=== PATIENT | male | born 1975 | race Two or more races ===

== ENCOUNTER 2025-08-07 21:59 | Emergency (ER) | payer MEDICAID, OTHER ==
[~2025-08-07] VITALS: Ht 177.8 cm; Wt 133.2 kg
[2025-08-07 22:05] VITALS: BP 131/81; PULSE 116; RESP 18; TEMP 98.8; O2SAT 96
[2025-08-07] MEDS ORDERED: ACE3T PO (22:21)
[2025-08-07] MEDS ORDERED: CYCL-837 PO (22:21)
--- NOTE | 2025-08-07 22:22 | ED.PDOC ---
Back pain HPI HPI Comments 50-year-old male presents to ER with complaints of back pain x 1 day. Patient with past medical history significant for chronic lower lumbar back pain reports he has been experiencing worsening lower lumbar back pain x1 day that he states started with "the cold weather". Denies use of medications for current symptoms and rates his current pain a 10/10. Patient presents to ER ambulatory on arrival, with the use of walker that he states he uses daily due to history of chronic back pain. Denies fever, body aches, chills, night sweats, numbness/tingling, nausea/vomiting, shortness of breath, chest pain, abdominal pain, extremity weakness, trauma/falls, heavy lifting, changes in urination/BM or any further symptoms/complaints Chief Complaint: Back Pain Time Seen by MD: 22:12 Primary Care Provider: UNKNOWN Reviewed Notes: Nurses Notes, Medications, Allergies Allergies: Coded Allergies: NO KNOWN ALLERGIES (Unverified , 08/07/25) Home Meds Active Scripts Acetaminophen W/ Codeine (Tylenol W/Cod #3) 1 Tab Tb, 1 TAB PO Q6HPRN, #10 TAB 0 Refills Prov:GEORGE CARLSON 08/07/25 Cyclobenzaprine Hcl (Cyclobenzaprine Hcl) 5 Mg Tab, 1 TAB PO QPM PRN, #14 TAB 0 Refills Prov:GEORGE CARLSON 08/07/25 Information Source: Patient Mode of Arrival: Ambulatory Past Medical History PAST MEDICAL HISTORY: HTN Past Medical History (Other): CHRONIC LUMBAR BACK PAIN Surgical History: Denies all surgeries Family History Family History: Unknown Social History Smoker: Non-Smoker Alcohol: Denies ETOH Use Drugs: Denies Drug Use Lives In: Home Constitutional: denies: chills, diaphoresis, fatigue, fever, malaise, sweats, weakness, others EENTM: denies: blurred vision, double vision, ear bleeding, ear discharge, ear drainage, ear pain, ear ringing, eye pain, eye redness, hearing loss, mouth pain, mouth swelling, nasal discharge, nose bleeding, nose congestion, nose pain, photophobia, tearing, throat pain, throat swelling, voice changes, others Respiratory: denies: cough, hemoptysis, orthopnea, SOB at rest, shortness of breath, SOB with excertion, stridor, wheezing, others Cardiovascular: denies: chest pain, dizzy spells, diaphoresis, Dyspnea on exertion, edema, irregular heart beat, left arm pain, lightheadedness, palpitations, PND, syncope, others Gastrointestinal: denies: abdomen distended, abdominal pain, blood streaked bowels, constipated, diarrhea, dysphagia, difficulty swallowing, hematemesis, melena, nausea, poor appetite, poor fluid intake, rectal bleeding, rectal pain, vomiting, others Genitourinary: denies: burning, dysuria, flank pain, frequency, hematuria, incontinence, penile discharge, penile sore, pain, testicle pain, testicle swelling, urgency, others Neurological: denies: dizziness, fainting, headache, left sided numbness, left sided weakness, numbness, paresthesia, pre-existing deficit, right sided numbness, right sided weakness, seizure, speech problems, tingling, tremors, weakness, others Musculoskeletal: reports: others (As stated in HPI) Integumetry: denies: bruises, change in color, change in hair/nails, dryness, laceration, lesions, lumps, rash, wounds, others Allergic/Immunocompromised: denies: Difficulty Healing, Frequent Infections, Hives, Itching, others Hematologic/Lymphatic: denies: anemia, blood clots, easy bleeding, easy bruising, swollen glands, others Endocrine: denies: excessive hunger, excessive sweating, excessive thirst, excessive urination, flushing, intolerance to cold, intolerance to heat, unexplained weight gain, unexplained weight loss, others Psychiatric: denies: anxiety, bipolar disorder, depression, hopeless, panic disorder, schizophrenia, sleepless, suicidal, others Physical Exam General Appearance: No Apparent Distress, Obese HEENT: PERRL/EOMI Neck: Full Range of Motion, Non-Tender, Normal Respiratory: Chest Non-Tender, Lungs Clear, No Accessory Muscle Use, No Resp iratory Distress, Normal Breath Sounds Cardiovascular: No Murmur, No Gallop, Regular Rate/Rhythm Breast Exam: Deferred Gastrointestinal: Non Tender, No Pulsatile Mass, Soft Genitalia: Deferred Pelvic: Deferred Rectal: Deferred Extremities: No calf tenderness, Normal capillary refill, Normal range of motion Musculoskeletal : Extremity Location: Back (TTP to bilateral lower lumbar paraspinals noted. No bony tenderness to lumbar/thoracic spine noted. Gait slowed with use of walker) Neurologic: Alert, No Motor Deficits, Normal Affect, Normal Mood, No Sensory De ficits Cerebellar Function: Normal Reflexes: Normal Skin: Dry, Normal Color, Warm Peripheral Pulses: 2+ femoral (R), 2+ femoral (L), 2+ dorsalis pedis (R), 2+ dorsalis pedis (L), 2+ Radial (R), 2+ Radial (L), 2+ Brachial (R), 2+ Brachial (L) Lymphatic: No Adenopathy Was a procedure done? Was a procedure done?: No Sedation Sedation?: No Back Pain Differential Dx Differential Diagnosis: AAA, Fracture, Urinary Tract Infection, Other (Neurovascular injury) X-Ray, Labs, Meds, VS Vital Signs Date Time Temp Pulse Resp B/P (MAP) Pulse Ox O2 Delivery O2 Flow Rate FiO2 08/07/25 22:05 98.8 116 18 131/81 96 98.8 Current Medications Medications (Trade) Dose Ordered Sig/Porsche Route Start Time Stop Time Status Last Admin Acetaminophen/ Hydrocodone Bitart ([place] 5/325MG Tab) 1 tab ONCE ONCE PO 08/07/25 22:30 08/07/25 22:31 DC 08/07/25 22:31 Naylor 5/325 mg p.o. ordered Patient had improvement in symptoms and in no distress prior to discharge Advised on rest/no strenuous activity Advised to follow up with PCP and pain management in 1-2 days Patient verbalized understanding and agreeable with current plan of care Advised to return to ER immediately if symptoms worsen Time of 1ST Reevaluation: 22:04 Reevaluation 1ST: N/A Patient Education/Counseling: Diagnosis, Treatment, Prognosis, Need For Follow Up Family Education/Counseling: No Family Present SEPSIS Sepsis Screen Date sepsis recognized/suspect: Aug 07, 2025 Time Sepsis recognized/suspect: 2207 Recent Procedure: No On Antibiotic Therapy: No Respiratory Rate >20: No Heart Rate >90: Yes Temp<36 C (96.8 F) or >38.3 C: No SBP <90 or MAP <65 mmHG: No New Acute Mental Status Change: No Is the patient on CPAP, BIPAP,: No Vital Signs Date Time Temp Pulse Resp B/P (MAP) Pulse Ox O2 Delivery O2 Flow Rate FiO2 08/07/25 22:05 98.8 116 18 131/81 96 98.8 Medications Medications Dose Ordered Sig/Porsche Route Start Time Stop Time Status Last Admin Dose Admin Acetaminophen/ Hydrocodone Bitart 1 tab ONCE ONCE PO 08/07/25 22:30 08/07/25 22:31 DC 08/07/25 22:31 Departure 1 Departure Time of Disposition: 22:20 Impression: Primary Impression: Acute exacerbation of chronic low back pain Disposition: HOME / SELF CARE / HOMELESS Condition: Stable e-Prescriptions Acetaminophen W/ Codeine (Tylenol W/Cod #3) 1 Tab Tb 1 TAB PO Q6HPRN, #10 TAB 0 Refills Prov: GEORGE CARLSON 08/07/25 Cyclobenzaprine Hcl (Cyclobenzaprine Hcl) 5 Mg Tab 1 TAB PO QPM PRN, #14 TAB 0 Refills Prov: GEORGE CARLSON 08/07/25 Discharged With: Significant Other Critical Care Note Critical Care Time?: No Stability Stability form required: No Heart Score Heart Score: Heart Score Response (Comments) Value History N/A 0 EKG N/A 0 Age N/A 0 Risk Factors N/A 0 Troponin N/A 0 Total 0 GEORGE CARLSON Aug 07, 2025 22:22
[2025-08-07] MEDS: HYDROcodone-ACET 5/325MG TAB PO ONE (22:31)
== END 2025-08-07 22:40 | disposition home or self-care (01) ==
LOC: ER 22:04
DX: G89.29 Other chronic pain (principal); M54.50 Low back pain, unspecified; I10 Essential (primary) hypertension; Z79.899 Other long term (current) drug therapy; Z98.890 Other specified postprocedural states

== ENCOUNTER 2025-08-15 16:11 | Inpatient (IN) | payer MEDICAID ==
[~2025-08-15] VITALS: Ht 177.8 cm; Wt 130.5 kg
[~2025-08-15 16:11] MED LIST: ACE3T PO; CYCL-837 PO
[2025-08-15] MEDS: HYDROcodone-ACET 10/325MG TAB PO ONE (18:31)
[2025-08-15] MEDS: ONDANSETRON ODT 4 MG TAB PO ONE (18:31)
--- NOTE | 2025-08-15 18:46 | ED.PDOC ---
Back pain HPI HPI Comments 50 year old male presents to ER for pain management of chronic lumbar back pain. Patient with PMH hx of chronic lumbar back pain/"[place] fever" of lumbar spine states he was seen in ER for his lumbar back pain 8 days ago and notes his pain has gotten worse x 3 days with decreased mobility prompting him to come to ER for further evaluation. He reports he's been taking Tylenol #3 without relief and rates his current pain a 10/10 diffuse to lumbar spin. Patient presents to ER in wheelchair in moderate distress. Denies fever, body aches, chills, night sweats, shortness of breath, chest pain, n/v, numbness/tingling, abdominal/pelvic pain, IV drug use, falls, changes in urination/bm or any further symptoms/complaints Chief Complaint: Back Pain Time Seen by MD: 18:19 Primary Care Provider: UNKNOWN Reviewed Notes: Nurses Notes, Medications, Allergies Allergies: Coded Allergies: NO KNOWN ALLERGIES (Unverified , 08/07/25) Home Meds Active Scripts Acetaminophen W/ Codeine (Tylenol W/Cod #3) 1 Tab Tb, 1 TAB PO Q6HPRN, #10 TAB 0 Refills Prov:GEORGE CARLSON 08/07/25 Cyclobenzaprine Hcl (Cyclobenzaprine Hcl) 5 Mg Tab, 1 TAB PO QPM PRN, #14 TAB 0 Refills Prov:GEORGE CARLSON 08/07/25 Information Source: Patient Mode of Arrival: Wheelchair Past Medical History PAST MEDICAL HISTORY: HTN Past Medical History (Other): Chronic lumbar back pain Surgical History: Denies all surgeries Family History Family History: Unknown Social History Smoker: Non-Smoker Alcohol: Denies ETOH Use Drugs: Denies Drug Use Lives In: Home Constitutional: denies: chills, diaphoresis, fatigue, fever, malaise, sweats, weakness, others EENTM: denies: blurred vision, double vision, ear bleeding, ear discharge, ear drainage, ear pain, ear ringing, eye pain, eye redness, hearing loss, mouth pain, mouth swelling, nasal discharge, nose bleeding, nose congestion, nose pain, photophobia, tearing, throat pain, throat swelling, voice changes, others Respiratory: denies: cough, hemoptysis, orthopnea, SOB at rest, shortness of breath, SOB with excertion, stridor, wheezing, others Cardiovascular: denies: chest pain, dizzy spells, diaphoresis, Dyspnea on exertion, edema, irregular heart beat, left arm pain, lightheadedness, palpitations, PND, syncope, others Gastrointestinal: denies: abdomen distended, abdominal pain, blood streaked bowels, constipated, diarrhea, dysphagia, difficulty swallowing, hematemesis, melena, nausea, poor appetite, poor fluid intake, rectal bleeding, rectal pain, vomiting, others Genitourinary: denies: burning, dysuria, flank pain, frequency, hematuria, incontinence, penile discharge, penile sore, pain, testicle pain, testicle swelling, urgency, others Neurological: denies: dizziness, fainting, headache, left sided numbness, left sided weakness, numbness, paresthesia, pre-existing deficit, right sided nu mbness, right sided weakness, seizure, speech problems, tingling, tremors, weakness, others Musculoskeletal: reports: others (As stated in HPI) Integumetry: denies: bruises, change in color, change in hair/nails, dryness, laceration, lesions, lumps, rash, wounds, others Allergic/Immunocompromised: denies: Difficulty Healing, Frequent Infections, Hives, Itching, others Hematologic/Lymphatic: denies: anemia, blood clots, easy bleeding, easy bruising, swollen glands, others Endocrine: denies: excessive hunger, excessive sweating, excessive thirst, excessive urination, flushing, intolerance to cold, intolerance to heat, unexplained weight gain, unexplained weight loss, others Psychiatric: denies: anxiety, bipolar disorder, depression, hopeless, panic disorder, schizophrenia, sleepless, suicidal, others Physical Exam General Appearance: Moderate Distress, Obese HEENT: PERRL/EOMI Neck: Full Range of Motion, Non-Tender, Normal Respiratory: Chest Non-Tender, Lungs Clear, No Accessory Muscle Use, No Respiratory Distress, Normal Breath Sounds Cardiovascular: No Murmur, No Gallop, Regular Rate/Rhythm Breast Exam: Deferred Gastrointestinal: Non Tender, No Pulsatile Mass, Soft Genitalia: Deferred Pelvic: Deferred Rectal: Deferred Extremities: No calf tenderness, Normal capillary refill, Normal range of motion Musculoskeletal : Extremity Location: Back (TTP diffuse to bilateral lower lumbar paraspinals and to lower lumbar spine noted. Gait slowed with use of asstiance) Neurologic: Alert, oil laboratory analyst II-XII nml as Tested, No Motor Deficits, No Sensory Deficits Cerebellar Function: Normal Reflexes: Normal Skin: Dry, Normal Color, Warm Peripheral Pulses: 2+ carotid (R), 2+ carotid (L), 2+ femoral (R), 2+ femoral (L), 2+ dorsalis pedis (R), 2+ dorsalis pedis (L), 2+ Radial (R), 2+ Radial (L), 2+ Brachial (R), 2+ Brachial (L) Lymphatic: No Adenopathy Was a procedure done? Was a procedure done?: No Sedation Sedation?: No Back Pain Differential Dx Differential Diagnosis: AAA, Fracture, Urinary Tract Infection, Other (Neurovascular injury, spinal abscess, sepsis, osteomyelitis) X-Ray, Labs, Meds, VS Vital Signs Date Time Temp Pulse Resp B/P (MAP) Pulse Ox O2 Delivery O2 Flow Rate FiO2 08/15/25 21:28 98.2 97 20 122/84 (97) 95 98.2 08/15/25 18:36 98.9 101 18 144/98 (113) 97 98.9 08/15/25 18:36 101 16 97 Room Air 08/15/25 16:12 99.1 99 18 142/97 95 99.1 Lab Test 08/15/25 18:57 08/15/25 18:31 08/15/25 18:25 Range/Units Lactic Acid Level 1.2 0.4-2.0 mmol/L White Blood Count 7.4 4.4-10.8 10^3/uL Red Blood Count 4.54 4.5-5.90 10^6/uL Hemoglobin 12.4 L 13.5-17.5 g/dL Hematocrit 37.7 L 41.0-53.0 % Mean Corpuscular Volume 83.0 80.0-100.0 fL Mean Corpuscular Hemoglobin 27.3 L 28.0-32.0 pg Mean Corpuscular Hemoglobin Concent 32.9 32.0-36.0 g/dL Red Cell Distribution Width 16.2 H 11.8-14.3 % Platelet Count 273 140-450 10^3/uL Mean Platelet Volume 6.6 L 6.9-10.8 fL Neutrophils (%) (Auto) 78.0 37.0-80.0 % Lymphocytes (%) (Auto) 12.7 10.0-50.0 % Monocytes (%) (Auto) 6.3 0.0-12.0 % Eosinophils (%) (Auto) 2.3 0.0-7.0 % Basophils (%) (Auto) 0.7 0.0-2.0 % Neutrophils # (Auto) 5.8 1.6-8.6 10 ^3/uL Lymphocytes # (Auto) 0.9 0.4-5.4 10 ^3/uL Monocytes # (Auto) 0.5 0-1.3 10 ^3/uL Eosinophils # (Auto) 0.2 0-0.8 10 ^3/uL Basophils # (Auto) 0.1 0-0.2 10 ^3/uL Nucleated Red Blood Cells 0.2 % Erythrocyte Sedimentation Rate 66 H 0-20 mm/hr Sodium Level 145 136-145 mmol/L Potassium Level 3.7 3.5-5.1 mmol/L Chloride Level 107 98-107 mmol/L Carbon Dioxide Level 30 20-31 mmol/L Anion Gap 8 5-15 Blood Urea Nitrogen 23 9-23 mg/dL Creatinine 1.17 0.700-1.30 mg/dL Glomerular Filtration Rate Calc 76 >90 mL/min BUN/Creatinine Ratio 19.7 10.0-20.0 Serum Glucose 112 H 74-106 mg/dL Calcium Level 9.4 8.7-10.4 mg/dL Urine Color Light-yellow Yellow Urine Clarity Clear Clear Urine pH 6.0 5.0-9.0 Urine Specific [place] 1.024 1.001-1.035 Urine Protein Negative Negative Urine Ketones Trace Negative Urine Blood Negative Negative /uL Urine Nitrite Negative Negative Urine Bilirubin Negative Negative Urine Urobilinogen Normal Negative mg/dL Urine Leukocyte Esterase Negative Negative /uL Urine RBC <1 0 - 3 /hpf Urine Microscopic WBC < 1 0-3 /HPF Urine Squamous Epithelial Cells Few <5 /hpf Urine Bacteria None seen None Seen /hpf Urine Glucose Normal Normal mg/dL Microbiology Date/Time Source Procedure Growth Status 08/15/25 19:09 Blood Blood Culture - Preliminary NO GROWTH AFTER 24 HOURS OF INCUBATION. Resulted 08/15/25 18:57 Blood Blood Culture - Preliminary NO GROWTH AFTER 24 HOURS OF INCUBATION. Resulted PATIENT: LELA LEACCT: [id number]: [id number] : 1975 LOC: ER ROOM / BED: / AGE / SEX: 50 / M ADM STATUS: REG ER SERVICE 23 ORDERING PHYSICIAN: GEORGE CARLSON PROCEDURE(s): LS2CT - LS SPINE WO CONTRAST REASON: lumbar back pain ORDER NUMBER(s): [id number], ACCESSION NUMBER(s): [id number] EXAM: CT LS SPINE WO CONTRAST DATE OF SERVICE: 08/15/2025 06:45 PM HISTORY: lumbar back pain COMPARISON: None TECHNIQUE: Multiple axial CT images of the lumbosacral spine were obtained. Radiation Dose Information: CT Dose: CTDI volume is 38.94 mGy. Dose-length product is 1340.57 mGy*cm FINDINGS: Destructive changes centered at the L3-L4 endplates with surrounding paravertebral inflammatory changes. The destructive changes are associated with height loss, with mild L3 and moderate L4 height loss. Findings suggestive of discitis/osteomyelitis. Intrathecal extension is not well assessed on the CT. Multilevel degenerative changes. No high-grade spinal canal or foraminal stenosis. No acute fracture. IMPRESSION: Findings highly suspicious for L3-L4 discitis/osteomyelitis. Recommend MRI lumbar spine with and without Contrast to assess for intrathecal extension and possible epidural abscess. ATED BY: AURELIO STREET MD DICTATED DATE/TIME: 08/15/251921 SIGNED BY: AURELIO STREET MD SIGNED DATE/TIME: 08/15/251921 CC: CBC reviewed without any significant abnormalities BMP reviewed without any significant abnormalities ESR reviewed - 66 Lactic acid ordered Blood cultures ordered Urinalysis ordered CT L spine w/o contrast reviewed [place] 10/325 mg p.o. ordered Hep-lock IV ordered Rocephin 2 g IV ordered Vancomycin IV ordered Patient neurovascularly intact Patient admitted to hospitalist for lumbar discitis/intractable lumbar back pain and need for ortho consult/MRI Images Reviewed?: Images reviewed and evaluated by me Time of 1ST Reevaluation: 18:24 Reevaluation 1ST: N/A Patient Education/Counseling: Diagnosis, Treatment, Prognosis, Need For Follow Up Family Education/Counseling: No Family Present SEPSIS Sepsis Screen Date sepsis recognized/suspect: Aug 15, 2025 Time Sepsis recognized/suspect: 1614 Recent Procedure: No On Antibiotic Therapy: No Respiratory Rate >20: No Heart Rate >90: Yes Temp<36 C (96.8 F) or >38.3 C: No SBP <90 or MAP <65 mmHG: No New Acute Mental Status Change: No Is the patient on CPAP, BIPAP,: No Physician Orders Ls Spine Wo Contrast (08/15/25 18:24) Blood Culture (08/15/25 18:44) Heplock Iv (08/15/25 ) Vital Signs Date Time Temp Pulse Resp B/P (MAP) Pulse Ox O2 Delivery O2 Flow Rate FiO2 08/15/25 21:28 98.2 97 20 122/84 (97) 95 98.2 08/15/25 18:36 98.9 101 18 144/98 (113) 97 98.9 08/15/25 18:36 101 16 97 Room Air 08/15/25 16:12 99.1 99 18 142/97 95 99.1 Laboratory Tests Test 08/15/25 18:31 08/15/25 18:57 White Blood Count 7.4 10^3/uL (4.4-10.8) Lactic Acid Level 1.2 mmol/L (0.4-2.0) Departure 1 Departure Time of Disposition: 18:41 Impression: Primary Impression: Lumbar discitis Additional Impression: Intractable low back pain Disposition: ADMITTED INPATIENT Condition: Stable Critical Care Note Critical Care Time?: No Stability Stability form required: No Heart Score Heart Score: Heart Score Response (Comments) Value History N/A 0 EKG N/A 0 Age N/A 0 Risk Factors N/A 0 Troponin N/A 0 Total 0 GEORGE CARLSON Aug 15, 2025 18:46
[2025-08-15 18:52] LABS: Hematocrit 37.7 % (41.0-53.0); Hemoglobin 12.4 g/dL (13.5-17.5); Mean Corpuscular Hemoglobin 27.3 pg (28.0-32.0); Mean Corpuscular Volume 83.0 fL (80.0-100.0); Nucleated Red Blood Cells % 0.2 %
[2025-08-15 18:54] LABS: Chloride 107 mmol/L (98-107); Potassium 3.7 mmol/L (3.5-5.1); Sodium 145 mmol/L (136-145)
[2025-08-15 18:55] LABS: Anion Gap 8 (5-15); Carbon Dioxide 30 mmol/L (20-31)
[2025-08-15 18:56] LABS: Calcium 9.4 mg/dL (8.7-10.4)
[2025-08-15 19:01] LABS: BUN/Creatinine Ratio 19.7 (10.0-20.0)
[2025-08-15 19:02] LABS: Blood Urea Nitrogen 23 mg/dL (9-23); Glucose 112 mg/dL (74-106)
--- NOTE | 2025-08-15 19:24 | DVH ---
EXAM: CT LS SPINE WO CONTRAST DATE OF SERVICE: 08/15/2025 06:45 PM HISTORY: lumbar back pain COMPARISON: None TECHNIQUE: Multiple axial CT images of the lumbosacral spine were obtained. Radiation Dose Information: CT Dose: CTDI volume is 38.94 mGy. Dose-length product is 1340.57 mGy*cm FINDINGS: Destructive changes centered at the L3-L4 endplates with surrounding paravertebral inflammatory changes. The destructive changes are associated with height loss, with mild L3 and moderate L4 height loss. Findings suggestive of discitis/osteomyelitis. Intrathecal extension is not well assessed on the CT. Multilevel degenerative changes. No high-grade spinal canal or foraminal stenosis. No acute fracture. IMPRESSION: Findings highly suspicious for L3-L4 discitis/osteomyelitis. Recommend MRI lumbar spine with and without Contrast to assess for intrathecal extension and possible epidural abscess.
[2025-08-15 19:44] LABS: Urine Protein, UAD Negative (Negative)
[2025-08-15] MEDS ORDERED: VANCOMYCIN 1.5GM/250ML 250 ML IV ONE (19:45)
--- NOTE | 2025-08-15 21:43 | DVHHPRES ---
History of Present Illness Resident Creating Document: ANCA TURCIOS RESIDENT History of Present Illness This is a 50-year-old male with past medical history of spinal abscess, coccidiomycosis, impaired mobility, back pain, lumbar spinal stenosis, GERD, dm 2, HTN, DVT on Eliquis came to ER with a complaint of low-back pain for 10 months but worsen 3 days which is 10/10 intensity, localized, no radiation, aggravated on movement or any kind of activity, no relieving factors. Patient tried Tylenol at home with does not helps and decided to come to ER. 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 -Bubba accompanied with patient in ER. Patient intermittently in [facility] since 2014 to 2024. Patient use walker/wheelchair since 2015 after injury his back in work place. Patient denies any bowel bladder incontinence or saddle anesthesia. Patient currently on wheelchair and having gait instability. Denies any fever, SOB, headache, abdominal pain, dysuria or any other acute distress. Past medical history: As above Past surgical history: Right knee surgery 1991 Family history: Father-DM2 Personal history: Use marijuana but denies any EtOH or illicit drug use Allergy: No known allergy PCP: [facility] Home medication: Amlodipine, apixaban, atorvastatin, fluconazole. Review of Systems Constitutional: Yes: Weakness, Malaise; No: Fever, Chills, Sweats, Other Eyes: No: Pain, Vision change, Conjunctivae inflammation, Eyelid inflammation, Other, Redness ENT: No: Ear pain, Ear discharge, Nose pain, Nose discharge, Nose congestion, Mouth pain, Mouth swelling, Throat pain, Throat swelling, Other Respiratory: No: Cough, Dry, Shortness of breath, SOB with excertion, Wheezing, Hemoptysis, Pleuritic Pain, Sputum, Wheezing, Other Cardiovascular: No: Chest Pain, Palpitations, Orthopnea, Paroxysmal Noc. Dyspnea, Edema, Lt Headedness, Other Gastrointestinal: No: Nausea, Vomiting, Abdominal Pain, Diarrhea, Constipation, Melena, Hematochezia, Other Genitourinary: No Dysuria, No Frequency, No Incontinence, No Hematuria, No Retention, No Other Musculoskeletal: back pain; No: other, neck pain, shoulder pain, arm pain, hand pain, leg pain, foot pain Skin: No: Rash, Lesions, Jaundice, Bruising, Other Neurological: No: Weakness, Numbness, Incoordination, Change in speech, Confusion, Seizures, Other Allergies: Coded Allergies: NO KNOWN ALLERGIES (Unverified , 08/07/25) Exam Vital Signs Vital Signs Date Time Temp Pulse Resp B/P (MAP) Pulse Ox O2 Delivery O2 Flow Rate FiO2 08/15/25 21:28 98.2 97 20 122/84 (97) 95 98.2 08/15/25 18:36 Room Air General Appearance: Alert, Oriented X3, Cooperative, No acute distress, moderate distress, Other (Lumbar region mild tender on deep palpation) HEENT: Atraumatic, PERRLA, EOMI Respiratory: Clear to auscultation, Normal air movement Cardiovascular: Regular rate, Normal S1, Normal S2, No murmurs Abdominal: Normal bowel sounds, Soft, No tenderness, No hepatospenomegaly Extremities: No clubbing, No cyanosis, No edema, Normal pulses Skin: No rashes, No breakdown Neuro: Normal speech, Strength at 5/5 X4 ext, Normal tone, Cranial nerves 3-12 NL, Other (Gait instability) Psych/Mental Status: Mental status NL, Mood NL Labs/Xrays Labs Test 08/15/25 18:57 08/15/25 18:31 08/15/25 18:25 Range/Units Lactic Acid Level 1.2 0.4-2.0 mmol/L White Blood Count 7.4 4.4-10.8 10^3/uL Red Blood Count 4.54 4.5-5.90 10^6/uL Hemoglobin 12.4 L 13.5-17.5 g/dL Hematocrit 37.7 L 41.0-53.0 % Mean Corpuscular Volume 83.0 80.0-100.0 fL Mean Corpuscular Hemoglobin 27.3 L 28.0-32.0 pg Mean Corpuscular Hemoglobin Concent 32.9 32.0-36.0 g/dL Red Cell Distribution Width 16.2 H 11.8-14.3 % Platelet Count 273 140-450 10^3/uL Mean Platelet Volume 6.6 L 6.9-10.8 fL Neutrophils (%) (Auto) 78.0 37.0-80.0 % Lymphocytes (%) (Auto) 12.7 10.0-50.0 % Monocytes (%) (Auto) 6.3 0.0-12.0 % Eosinophils (%) (Auto) 2.3 0.0-7.0 % Basophils (%) (Auto) 0.7 0.0-2.0 % Neutrophils # (Auto) 5.8 1.6-8.6 10 ^3/uL Lymphocytes # (Auto) 0.9 0.4-5.4 10 ^3/uL Monocytes # (Auto) 0.5 0-1.3 10 ^3/uL Eosinophils # (Auto) 0.2 0-0.8 10 ^3/uL Basophils # (Auto) 0.1 0-0.2 10 ^3/uL Nucleated Red Blood Cells 0.2 % Erythrocyte Sedimentation Rate 66 H 0-20 mm/hr Sodium Level 145 136-145 mmol/L Potassium Level 3.7 3.5-5.1 mmol/L Chloride Level 107 98-107 mmol/L Carbon Dioxide Level 30 20-31 mmol/L Anion Gap 8 5-15 Blood Urea Nitrogen 23 9-23 mg/dL Creatinine 1.17 0.700-1.30 mg/dL Glomerular Filtration Rate Calc 76 >90 mL/min BUN/Creatinine Ratio 19.7 10.0-20.0 Serum Glucose 112 H 74-106 mg/dL Calcium Level 9.4 8.7-10.4 mg/dL Urine Color Light-yellow Yellow Urine Clarity Clear Clear Urine pH 6.0 5.0-9.0 Urine Specific [place] 1.024 1.001-1.035 Urine Protein Negative Negative Urine Ketones Trace Negative Urine Blood Negative Negative /uL Urine Nitrite Negative Negative Urine Bilirubin Negative Negative Urine Urobilinogen Normal Negative mg/dL Urine Leukocyte Esterase Negative Negative /uL Urine RBC <1 0 - 3 /hpf Urine Microscopic WBC < 1 0-3 /HPF Urine Squamous Epithelial Cells Few <5 /hpf Urine Bacteria None seen None Seen /hpf Urine Glucose Normal Normal mg/dL SEPSIS Sepsis Screen Date sepsis recognized/suspect: Aug 15, 2025 Time Sepsis recognized/suspect: 1613 Recent Procedure: No On Antibiotic Therapy: No Respiratory Rate >20: No Heart Rate >90: Yes Temp<36 C (96.8 F) or >38.3 C: No SBP <90 or MAP <65 mmHG: No New Acute Mental Status Change: No Is the patient on CPAP, BIPAP,: No Physician Orders Ls Spine Wo Contrast (08/15/25 18:24) Blood Culture (08/15/25 18:44) Heplock Iv (08/15/25 ) Vital Signs Date Time Temp Pulse Resp B/P (MAP) Pulse Ox O2 Delivery O2 Flow Rate FiO2 08/15/25 21:28 98.2 97 20 122/84 (97) 95 98.2 08/15/25 18:36 98.9 101 18 144/98 (113) 97 98.9 08/15/25 18:36 101 16 97 Room Air 08/15/25 16:12 99.1 99 18 142/97 95 99.1 Laboratory Tests Test 08/15/25 18:31 08/15/25 18:57 White Blood Count 7.4 10^3/uL (4.4-10.8) Lactic Acid Level 1.2 mmol/L (0.4-2.0) Medications Medications Dose Ordered Sig/Porsche Route Start Time Stop Time Status Last Admin Dose Admin Acetaminophen/ Hydrocodone Bitart 1 tab ONCE ONCE PO 08/15/25 18:30 08/15/25 18:43 DC 08/15/25 18:31 1 TAB Ondansetron HCl 4 mg ONCE ONCE PO 08/15/25 18:30 08/15/25 18:43 DC 08/15/25 18:31 4 MG Assessment/Plan Assessment/Plan Intractable low-back pain possible osteomyelitis lumbar vertebral Destructive changes centered at the L3-L4 endplates Lumbar vertebral discitis Severe lumbar radiculopathy H/o Valley fever (coccidioidomycosis) in lumbar region In ER patient received vancomycin, ceftriaxone, ondansetron, [place] Lactic acid: 1.2 ESR: 66 CT lumbar spine with out contrast: Destructive changes centered at the L3-L4 endplates with surrounding paravertebral inflammatory changes. Findings highly suspicious for L3-L4 discitis/osteomyelitis. destructive changes are associated with height loss. Started empiric antibiotic vancomycin and cefepime Fluconazole until 08/27/2025 (one month) Blood culture Pain management Fall precaution Physical therapy MRI lumbar region with contrast Neurosurgery as per primary team Essential hypertension Amlodipine Monitor blood pressure History of DVT( home medication Eliquis) Started therapeutic dose Lovenox Type 2 diabetes mellitus Hyperlipidemia Atorvastatin Carbohydrate consistent diet Morbid obesity, BMI 41.4 Gait instability Lifestyle modification Diet: Carbohydrate consistent diet GI prophylaxis: Pantoprazole DVT prophylaxis: Lovenox Goals of care discussions. More than 27 minute spent with patient. Full code status. Case discussed with Dr. Spann Plan discussed with: Patient, Spouse (Bubba), Other Visit Coding STANDARD RES Billing Provider: RICHA SPANN MD Date of Service if different f: Aug 15, 2025 Common Visit Codes: 42738-IAOJLSY INP/OBS CARE (HIGH) Secondary Visit Codes: [id number] CARE PLAN 30 MINUTES ANCA TURCIOS RESIDENT Aug 15, 2025 21:43
[2025-08-15] MEDS ORDERED: CEFEPIME 1GM/50ML 50 ML IV SCH (22:00)
[2025-08-15] MEDS ORDERED: VANCOMYCIN PER PHARMACY 0 MG IV SCH (22:00)
[2025-08-16 01:40] VITALS: BP 111/62; PULSE 98; RESP 19; TEMP 98.2; O2SAT 99
[2025-08-16] MEDS: ATORVASTATIN 20 MG TAB PO SCH (02:01)
[2025-08-16] MEDS: SODIUM CHLORIDE 0.9% 1,000 ML IV SCH (02:03)
[2025-08-16] MEDS: VANCOMYCIN 1GM/250ML IV SCH ×2 (03:47→03:54)
[2025-08-16] MEDS: HYDROcodone-ACET 5/325MG TAB PO PRN (03:53)
[2025-08-16 05:00] VITALS: BP 103/52; PULSE 102; RESP 18; TEMP 98.1; O2SAT 95
[2025-08-16] MEDS: CEFEPIME 1GM/50ML 50 ML IV SCH (06:09)
[2025-08-16] MEDS: PANTOPRAZOLE 40 MG TAB PO SCH (06:10)
[2025-08-16 06:15] LABS: Hematocrit 34.7 % (41.0-53.0); Hemoglobin 11.7 g/dL (13.5-17.5); Mean Corpuscular Hemoglobin 27.7 pg (28.0-32.0); Mean Corpuscular Volume 82.0 fL (80.0-100.0); Nucleated Red Blood Cells % 0.1 %
[2025-08-16 06:30] LABS: Albumin 3.4 g/dL (3.2-4.8); Alkaline Phosphatase 88 U/L (46-116); Anion Gap 8 (5-15); BUN/Creatinine Ratio 21.3 (10.0-20.0); Blood Urea Nitrogen 20 mg/dL (9-23); Carbon Dioxide 27 mmol/L (20-31); Glucose 102 mg/dL (74-106); Magnesium 2.0 mg/dL (1.6-2.6); Potassium 3.6 mmol/L (3.5-5.1); Sodium 143 mmol/L (136-145); Total Protein 6.1 g/dL (5.7-8.2)
[2025-08-16 06:32] LABS: Alanine Aminotransferase 52 U/L (7-40); Bilirubin, Total 0.2 mg/dL (0.2-1.0); Calcium 8.5 mg/dL (8.7-10.4); Chloride 108 mmol/L (98-107)
--- NOTE | 2025-08-16 08:42 | DVH ---
INDICATION: Rule out cardiopulmonary DX TECHNIQUE: Frontal view of the chest. COMPARISON: None FINDINGS: Cardiomegaly with CHF. The lungs are clear. The bony structures of the chest are intact without fracture. IMPRESSION: 1. Cardiomegaly with CHF.
[2025-08-16 09:00] VITALS: BP 129/84; PULSE 97; RESP 18; TEMP 98.4; O2SAT 98
[2025-08-16 09:52] LABS: INR 0.99 (0.9-1.15); Partial Thromboplastin Time 29.6 SEC (24.5-34.5); Prothrombin Time 10.5 sec (9.3-11.8)
[2025-08-16] MEDS: ENOXAPARIN SOD 100 MG/1 ML SYRINGE SC SCH (10:33)
--- NOTE | 2025-08-16 11:42 | DVHINCON2 ---
Consultation - Surgical Date Seen: Aug 16, 2025 Referring Physician Referring Physician Attending Doctor: Annika Barragan Resident Reason for Consultation back pain History of Present Illness History of Present Illness HPI Comments Patient arrives in a wheelchair, currently on muscle relaxers Flexeril and home medications for pain 50 year old male presents to ER for pain management of chronic lumbar back pain. Patient with PMH hx of chronic lumbar back pain/"Valley fever" of lumbar spine states he was seen in ER for his lumbar back pain 8 days ago and notes his pain has gotten worse x 3 days with decreased mobility prompting him to come to ER for further evaluation. He reports he's been taking Tylenol #3 without relief and rates his current pain a 10/10 diffuse to lumbar spin. Patient presents to ER in wheelchair in moderate distress. Denies fever, body aches, chills, night sweats, shortness of breath, chest pain, n/v, numbness/tingling, abdominal/pel terra pain, IV drug use, falls, changes in urination/bm or any further symptoms/complaints Past Medical/Surgical History Past Medical/Surgical History Past Medical History Past Medical History PAST MEDICAL HISTORY: HTN Past Medical History (Other): Chronic lumbar back pain Surgical History: Denies all surgeries Family and Social History Family and Social History Family History Family History: Unknown Social History Smoker: Non-Smoker Alcohol: Denies ETOH Use Drugs: Denies Drug Use Lives In: Home Allergies and medications Allergies: Coded Allergies: NO KNOWN ALLERGIES (Unverified , 08/07/25) Home Meds Active Scripts Acetaminophen W/ Codeine (Tylenol W/Cod #3) 1 Tab Tb, 1 TAB PO Q6HPRN, #10 TAB 0 Refills Prov:GEORGE CARLSON 08/07/25 Cyclobenzaprine Hcl (Cyclobenzaprine Hcl) 5 Mg Tab, 1 TAB PO QPM PRN, #14 TAB 0 Refills Prov:GEORGE CARLSON 08/07/25 Review of systems Review of Systems: MSK:Abnormal (Patient reports excruciating back pain and he was seen for recently and treated within the last eight days in the emergency room however back pain is increasing over the past three days to the point where he needs to using wheelchair to get around. Patient has had a history of back pain prior) Examination Vital signs Imaging: ORDERING PHYSICIAN: ANNIKA BARRAGAN RESIDENT PROCEDURE(s): MSLW - LUMBAR SPINE WO W CONTRST REASON: ORDER NUMBER(s): [id number], ACCESSION NUMBER(s): [id number] PROCEDURE: MRI LUMBAR SPINE WO W CONTRST INDICATION: R/O OM 50-year-old male with possible discitis and osteomyelitis L3-L4. Exam Date: 08/16/2025 12:17 PM COMPARISON: CT scan of the lumbar spine dated 08/15/2025. TECHNIQUE: Multiplanar multisequence pre and post IV contrast MR images of the lumbar spine were performed utilizing 20 mL Clariscan gadolinium contrast. FINDINGS: No fractures or listhesis are identified about the lumbar spine. The conus medullaris termination is not well visualized. L1-L2: No significant discopathy, spinal canal stenosis, or neural foraminal stenosis bilaterally. There is bilateral facet hypertrophy. L2-L3: There is a mild circumferential disc bulge. There is exaggerated concavity of the L3 superior endplate on the right with associated enhancement of the underlying bone. There is loculated peripherally enhancing fluid tracking in the right epidural space along the posterior margin of the L2 vertebral body (image 6, series 3). There is bilateral facet and ligamentum flavum hypertrophy. No significant spinal canal stenosis. There is moderate to severe right and mild left neural foraminal stenosis. L3-L4: Enhancing material extends along the anterior margins of the vertebral bodies spanning L2-L5 and displacing the abdominal aorta and IVC anteriorly (image 9, series 7 and 13). As a result, the AP dimension of the thecal sac is narrowed to 6 mm in the midline. There is partial effacement of the lateral recesses, greater on the right. L4-L5: No significant disc bulge or herniation. There is mild edema and enhancement of the L4 inferior endplate. There is loculated peripherally enhancing fluid in the right anterior epidural space displacing the thecal sac posteriorly and to the left. As a result, the AP dimension of the thecal sac measures 4.5 mm in the midline. There is partial effacement of the lateral recesses, greater on the right. There is bilateral facet and ligamentum flavum hypertrophy. There is moderate to severe right and moderate left neural foraminal stenosis. L5-S1: No significant discopathy, spinal canal stenosis, or neural foraminal stenosis bilaterally. IMPRESSION: 1. No fracture of the lumbar spine. 2. L3-L4 discitis and osteomyelitis, with abscess and/or phlegmon extending into the anterior epidural space along the posterior margins of the L2-L5 vertebral bodies, greater on the right, and possibly also in the posterior epidural space at the L3-L4 level. This process measures 9.7 cm longitudinal and causes moderate spinal canal stenosis at L3-L4 and moderate to severe spinal canal stenosis at L4-LAdditionally, phlegmon extends along the anterior margins of the L2-L5 vertebral bodies and displaces the aorta and IVC anteriorly. Recommend spinal surgery consultation if not already obtained. 3. Significant neural foraminal stenosis on the right at L2-L3, bilaterally at L3-L4, and bilaterally at L4-L5; and partial effacement of the lateral recesses at the L3-L4 and L4-L5 levels. These findings may correspond to lower extremity radicular symptoms in the right L2, bilateral L3, bilateral L4, and bilateral L5 nerve root distributions. RING PHYSICIAN: GEORGE CARLSON PROCEDURE(s): LS2CT - LS SPINE WO CONTRAST REASON: lumbar back pain ORDER NUMBER(s): [id number], ACCESSION NUMBER(s): [id number] EXAM: CT LS SPINE WO CONTRAST DATE OF SERVICE: 08/15/2025 06:45 PM HISTORY: lumbar back pain COMPARISON: None TECHNIQUE: Multiple axial CT images of the lumbosacral spine were obtained. Radiation Dose Information: CT Dose: CTDI volume is 38.94 mGy. Dose-length product is 1340.57 mGy*cm FINDINGS: Destructive changes centered at the L3-L4 endplates with surrounding paravertebral inflammatory changes. The destructive changes are associated with height loss, with mild L3 and moderate L4 height loss. Findings suggestive of discitis/osteomyelitis. Intrathecal extension is not well assessed on the CT. Multilevel degenerative changes. No high-grade spinal canal or foraminal stenosis. No acute fracture. IMPRESSION: Findings highly suspicious for L3-L4 discitis/osteomyelitis. Recommend MRI lumbar spine with and without Contrast to assess for intrathecal extension and possible epidural abscess. Vital Signs Date Time Temp Pulse Resp B/P (MAP) Pulse Ox O2 Delivery O2 Flow Rate FiO2 08/16/25 10:00 129/84 08/16/25 05:00 98.1 102 18 95 98.1 08/16/25 01:40 Room Air* 0 21 Medications Current Medications Medications (Trade) Dose Ordered Sig/Porsche Route PRN Reason Start Time Stop Time Status Last Admin Sodium Chloride 1,000 ml @ 120 mls/hr Q8H20M IV 08/15/25 21:45 08/16/25 02:03 Acetaminophen/ Hydrocodone Bitart ([place] 5/325MG Tab) 1 tab Q4HP PRN PO MODERATE PAIN (4-6 PAIN SCALE) 08/15/25 21:45 08/16/25 03:53 Amlodipine Besylate (Norvasc Tablet) 10 mg DAILY PO 08/16/25 10:00 08/16/25 10:00 Enoxaparin Sodium (Lovenox) 100 mg Q12HR SC 08/15/25 22:00 08/16/25 10:35 Atorvastatin Calcium (Lipitor) 40 mg HS PO 08/15/25 22:00 08/16/25 02:01 Pantoprazole Sodium (Protonix Tablet) 40 mg DAILY@0600 PO 08/16/25 06:00 08/16/25 06:10 Vancomycin HCl 0 ml @ 0 mls/hr PER PHARMACY IV 08/15/25 22:00 Cefepime HCl 50 ml @ 12.5 mls/hr Q12HR IV 08/15/25 22:00 08/16/25 03:41 DC Vancomycin HCl 250 ml @ 250 mls/hr Q1H IV 08/15/25 22:15 08/16/25 00:14 DC Vancomycin HCl 250 ml @ 250 mls/hr Q1H IV 08/16/25 03:45 08/16/25 05:44 DC 08/16/25 04:54 Cefepime HCl 50 ml @ 12.5 mls/hr Q12H IV 08/16/25 05:30 08/16/25 06:09 Fluconazole (Diflucan Tablet) 800 mg DAILY PO 08/16/25 10:00 Laboratory Labs Test 08/16/25 06:30 08/16/25 05:30 08/15/25 18:57 08/15/25 18:31 Range/Units Prothrombin Time 10.5 9.3-11.8 sec Prothrombin Time INR 0.99 0.9-1.15 Activated Partial Thromboplast Time 29.6 24.5-34.5 SEC White Blood Count 4.6 # 4.4-10.8 10^3/uL Red Blood Count 4.23 L 4.5-5.90 10^6/uL Hemoglobin 11.7 L 13.5-17.5 g/dL Hematocrit 34.7 L 41.0-53.0 % Mean Corpuscular Volume 82.0 80.0-100.0 fL Mean Corpuscular Hemoglobin 27.7 L 28.0-32.0 pg Mean Corpuscular Hemoglobin Concent 33.8 32.0-36.0 g/dL Red Cell Distribution Width 16.4 H 11.8-14.3 % Platelet Count 239 140-450 10^3/uL Mean Platelet Volume 6.8 L 6.9-10.8 fL Neutrophils (%) (Auto) 53.2 37.0-80.0 % Lymphocytes (%) (Auto) 30.6 10.0-50.0 % Monocytes (%) (Auto) 11.4 0.0-12.0 % Eosinophils (%) (Auto) 4.3 0.0-7.0 % Basophils (%) (Auto) 0.5 0.0-2.0 % Neutrophils # (Auto) 2.4 1.6-8.6 10 ^3/uL Lymphocytes # (Auto) 1.4 0.4-5.4 10 ^3/uL Monocytes # (Auto) 0.5 0-1.3 10 ^3/uL Eosinophils # (Auto) 0.2 0-0.8 10 ^3/uL Basophils # (Auto) 0 0-0.2 10 ^3/uL Nucleated Red Blood Cells 0.1 % Sodium Level 143 136-145 mmol/L Potassium Level 3.6 3.5-5.1 mmol/L Chloride Level 108 H 98-107 mmol/L Carbon Dioxide Level 27 20-31 mmol/L Anion Gap 8 5-15 Blood Urea Nitrogen 20 9-23 mg/dL Creatinine 0.94 0.700-1.30 mg/dL Glomerular Filtration Rate Calc 99 >90 mL/min BUN/Creatinine Ratio 21.3 H 10.0-20.0 Serum Glucose 102 74-106 mg/dL Hemoglobin A1c 5.5 <5.7 % A1C Calcium Level 8.5 L 8.7-10.4 mg/dL Magnesium Level 2.0 1.6-2.6 mg/dL Total Bilirubin 0.2 0.2-1.0 mg/dL Aspartate Amino Transferase (AST) 26 13-40 U/L Alanine Aminotransferase (ALT) 52 H 7-40 U/L Alkaline Phosphatase 88 46-116 U/L Total Protein 6.1 5.7-8.2 g/dL Albumin 3.4 3.2-4.8 g/dL Vitamin B12 Level 487 211-911 pg/mL Thyroid Stimulating Hormone (TSH) 1.49 0.55-4.78 uIU/mL Lactic Acid Level 1.2 0.4-2.0 mmol/L Erythrocyte Sedimentation Rate 66 H 0-20 mm/hr Test 08/15/25 18:25 Range/Units Urine Color Light-yellow Yellow Urine Clarity Clear Clear Urine pH 6.0 5.0-9.0 Urine Specific [place] 1.024 1.001-1.035 Urine Protein Negative Negative Urine Ketones Trace Negative Urine Blood Negative Negative /uL Urine Nitrite Negative Negative Urine Bilirubin Negative Negative Urine Urobilinogen Normal Negative mg/dL Urine Leukocyte Esterase Negative Negative /uL Urine RBC <1 0 - 3 /hpf Urine Microscopic WBC < 1 0-3 /HPF Urine Squamous Epithelial Cells Few <5 /hpf Urine Bacteria None seen None Seen /hpf Urine Glucose Normal Normal mg/dL Examination: GENERAL:Normal, HEENT:Normal, NECK:Normal, LUNGS:Normal, CVS:Normal, ABDOMEN:Normal, MSK:Abnormal (low back [place]), SKIN:Normal, NEURO:Normal (patient is able to move all extremities independently, he does have intermittent weakness to left foot with pedal pull, however it clear on re- exam) Problem List/Assessment/Plan Problems: (1) Acute exacerbation of chronic low back pain (2) Lumbar discitis (3) Intractable low back pain Assessment and Plan 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 Agree with consult from ID that transfer to [facility] is recommended Continue care and support per admitting team's discretion Physical therapy evaluation, treatment recommendations and safe discharge planning recommendations Effective pain management including muscle relaxers if the patient is complaining of muscle spasms Suggest consultation with Infectious diseases, rule out TB, recommend isolation precautions, chest CT Further recommendations once there is a diagnosis Call made to ED charge nurse to alert them to place patient in isolation precautions Call with questions Donald Begum [facility] Orthopaedic Spine Surgery nurse practitioner For Dr Ottoniel Gonzales Patient was examined, chart reviewed, labs evaluated, and diagnostic studies and findings analyzed. Case was discussed with Dr. Stanford Gonzales who formulated the plan of care. This medical document was created using an electronic medical record system with [employer] dictation system. Although this document has been carefully reviewed, there might still be some phonetic and typographical errors. These areas are purely typographical due to imperfections of the software programs, and do not reflect any compromise in the patient's medical care. Plan discussed with Plan discussed with: Patient, Other Visit Coding Surgery Date of Service if different f: Aug 16, 2025 Billing Provider: STEFAN BEGUM NP Surgery Visit Codes: 20352 - INP CONSULT <55 MIN STEFAN BEGUM NP Aug 16, 2025 11:42
[2025-08-16] MEDS: FLUCONAZOLE 100 MG TAB PO SCH (12:24)
--- NOTE | 2025-08-16 13:29 | DVH ---
PROCEDURE: MRI LUMBAR SPINE WO W CONTRST INDICATION: R/O OM 50-year-old male with possible discitis and osteomyelitis L3-L4. Exam Date: 08/16/2025 12:17 PM COMPARISON: CT scan of the lumbar spine dated 08/15/2025. TECHNIQUE: Multiplanar multisequence pre and post IV contrast MR images of the lumbar spine were performed utilizing 20 mL Clariscan gadolinium contrast. FINDINGS: No fractures or listhesis are identified about the lumbar spine. The conus medullaris termination is not well visualized. L1-L2: No significant discopathy, spinal canal stenosis, or neural foraminal stenosis bilaterally. There is bilateral facet hypertrophy. L2-L3: There is a mild circumferential disc bulge. There is exaggerated concavity of the L3 superior endplate on the right with associated enhancement of the underlying bone. There is loculated peripherally enhancing fluid tracking in the right epidural space along the posterior margin of the L2 vertebral body (image 6, series 3). There is bilateral facet and ligamentum flavum hypertrophy. No significant spinal canal stenosis. There is moderate to severe right and mild left neural foraminal stenosis. L3-L4: Enhancing material extends along the anterior margins of the vertebral bodies spanning L2-L5 and displacing the abdominal aorta and IVC anteriorly (image 9, series 7 and 13). As a result, the AP dimension of the thecal sac is narrowed to 6 mm in the midline. There is partial effacement of the lateral recesses, greater on the right. L4-L5: No significant disc bulge or herniation. There is mild edema and enhancement of the L4 inferior endplate. There is loculated peripherally enhancing fluid in the right anterior epidural space displacing the thecal sac posteriorly and to the left. As a result, the AP dimension of the thecal sac measures 4.5 mm in the midline. There is partial effacement of the lateral recesses, greater on the right. There is bilateral facet and ligamentum flavum hypertrophy. There is moderate to severe right and moderate left neural foraminal stenosis. L5-S1: No significant discopathy, spinal canal stenosis, or neural foraminal stenosis bilaterally. IMPRESSION: 1. No fracture of the lumbar spine. 2. L3-L4 discitis and osteomyelitis, with abscess and/or phlegmon extending into the anterior epidural space along the posterior margins of the L2-L5 vertebral bodies, greater on the right, and possibly also in the posterior epidural space at the L3-L4 level. This process measures 9.7 cm longitudinal and causes moderate spinal canal stenosis at L3-L4 and moderate to severe spinal canal stenosis at L4-LAdditionally, phlegmon extends along the anterior margins of the L2-L5 vertebral bodies and displaces the aorta and IVC anteriorly. Recommend spinal surgery consultation if not already obtained. 3. Significant neural foraminal stenosis on the right at L2-L3, bilaterally at L3-L4, and bilaterally at L4-L5; and partial effacement of the lateral recesses at the L3-L4 and L4-L5 levels. These findings may correspond to lower extremity radicular symptoms in the right L2, bilateral L3, bilateral L4, and bilateral L5 nerve root distributions.
--- NOTE | 2025-08-16 14:27 | DVHPNRES ---
Progress Note Date Seen: Aug 16, 2025 Resident Creating Document: ANIYAH LEMUS Medical Necessity Reason Pt with a Central, PICC or Fol: No Subjective Review of Systems Patient is a 50-year-old male with past medical history of DVT, coccidioidomycosis, presented to [facility] ED with complaint of lower back pain. The patient reports severe stabbing lower back pain rated 10/10 that started in November of this year. The pain radiates to the lower abdomen and both legs and worsens significantly with movement. The patient states that the pain is associated with vomiting and numbness in the left foot. He was hospitalized in February 2025 at [facility] and diagnosed with valley fever (coccidioidomycosis) involving the lumbar spine after a lumbar puncture revealed fungal infection in the cerebrospinal fluid and he is currently taking fluconazole. The patient report that he contracted coccidioidomycosis [place] [facility] [place]. He reports that his current pain medications, codeine and Tylenol, are not effective. He also has a history of deep vein thrombosis diagnosed in 2009 and is currently taking Eliquis 2.5 mg twice daily. Past surgical history: Right knee surgery 1991 Family history: Father-DM2 Personal history: Use marijuana recently for pain but denies any EtOH or illicit drug use Allergy: No known allergy Patient seen and examined at bedside. Patient is alert and oriented to time, place person and responding to all questions. Eyes: No Pain, No Vision change, No Conjunctivae inflammation, No Eyelid inflammation, No Other, No Redness ENT: No Ear pain, No Ear discharge, No Nose pain, No Nose discharge, No Nose congestion, No Mouth pain, No Mouth swelling, No Throat pain, No Throat swelling, No Other Cardiovascular: No Chest Pain, No Palpitations, No Orthopnea, No Paroxysmal No Dyspnea, No Edema, No Lt Headedness, No Other Respiratory: No Cough, No Dry, Shortness of breath, No SOB with exertion, No Wheezing, No Hemoptysis, No Pleuritic Pain, No Sputum, No Other Gastrointestinal: Nausea, Vomiting, Abdominal Pain, No Diarrhea, No Constipation, No Melena, No Hematochezia, No Other Genitourinary: No Dysuria, No Frequency, No Incontinence, No Hematuria, No Retention, No Other Musculoskeletal: No other, No neck pain, No shoulder pain, No arm pain, back pain, No hand pain, No leg pain, No foot pain Skin: No Rash, No Lesions, No Jaundice, No Bruising, No Other Objective vital signs Vital Sign Date Time Temp Pulse Resp B/P (MAP) Pulse Ox O2 Delivery O2 Flow Rate FiO2 08/16/25 10:00 129/84 08/16/25 08:00 Room Air* 0 21 08/16/25 05:00 98.1 102 18 95 98.1 Total Intake and Output 08/15/25 08/15/25 08/16/25 15:00 23:00 07:00 Intake Total 550 ml Output Total 350 ml Balance 200 ml medications Current Medications Medications Dose Ordered Sig/Porsche Route Start Time Stop Time Status Last Admin Dose Admin Sodium Chloride 1,000 ml @ 120 mls/hr Q8H20M IV 08/15/25 21:45 08/16/25 02:03 120 MLS/HR Acetaminophen/ Hydrocodone Bitart 1 tab Q4HP PRN PO 08/15/25 21:45 08/16/25 03:53 1 TAB Amlodipine Besylate 10 mg DAILY PO 08/16/25 10:00 08/16/25 10:00 10 MG Enoxaparin Sodium 100 mg Q12HR SC 08/15/25 22:00 08/16/25 10:35 100 MG Atorvastatin Calcium 40 mg HS PO 08/15/25 22:00 08/16/25 02:01 40 MG Pantoprazole Sodium 40 mg DAILY@0600 PO 08/16/25 06:00 08/16/25 06:10 40 MG Vancomycin HCl 0 ml @ 0 mls/hr PER PHARMACY IV 08/15/25 22:00 Cefepime HCl 50 ml @ 12.5 mls/hr Q12H IV 08/16/25 05:30 08/16/25 06:09 12.5 MLS/HR Fluconazole 800 mg DAILY PO 08/16/25 10:00 08/16/25 12:24 800 MG Vancomycin HCl 250 ml @ 200 mls/hr Q8H IV 08/16/25 14:00 Examination General Appearance: Cooperative. Well developed. Well nourished. NAD Head Exam: Normal inspection Neck Exam: Normal inspection. Non-tender. Normal alignment Pulmonary/Respiratory: Chest non-tender. Clear bilateral breath sounds, no crackles, no wheezing. Cardiovascular/Chest: Regular rate and rhythm. No murmurs. No JVD. Peripheral Pulses: 2+ Radial (R). 2+ Radial (L). 2+ Pedal (R). 2+ Pedal (L) Abdominal Exam: Abdominal distension. Normal bowel sounds. Soft. normal abdomen, no visible veins, Nontender. No hepatospenomegaly. No masses Ankle Exam: Negative ankle edema Lower extremities: Negative lower extremity edema. Numbness and tingling sensation in bilateral lower extremity. Neuro/Mental Status: A&O x4. Coherent. Thoughts/Psych: Normal thought pattern. Appropriate mood and affect. Good judgement and insight Skin Exam: Normal inspection. Normal color. Warm. Dry laboratory and microbiology Laboratory Tests 08/16/25 05:30 Test 08/16/25 05:30 Range/Units Serum Glucose 102 74-106 mg/dL Labs and/or images reviewed: Labs reviewed by me, Image(s) reviewed by me Problem List/Assessment/Plan Problem List/Assessment/Plan # Pott's disease, likely # L3-L4 discitis/osteomyelitis # Moderate spinal canal stenosis at L3L4 and moderate to severe stenosis at L4L5 due to infectious/inflammatory process # Lumbar vertebral discitis # Severe lumbar radiculopathy # H/o Valley fever (coccidioidomycosis) in lumbar region Lumbar Spine MRI: No fracture of the lumbar spine. L3-L4 discitis and osteomyelitis, with abscess and/or phlegmon extending into the anterior epidural space along the posterior margins of the L2-L5 vertebral bodies, greater on the right, and possibly also in the posterior epidural space at the L3-L4 level. This process measures 9.7 cm longitudinal and causes moderate spinal canal stenosis at L3-L4 and moderate to severe spinal canal stenosis at L4- LAdditionally, phlegmon extends along the anterior margins of the L2-L5 vertebral bodies and displaces the aorta and IVC anteriorly. Recommend spinal surgery consultation if not already obtained. Significant neural foraminal stenosis on the right at L2-L3, bilaterally at L3-L4, and bilaterally at L4-L5; and partial effacement of the lateral recesses at the L3-L4 and L4-L5 levels. These findings may correspond to lower extremity radicular symptoms in the right L2, bilateral L3, bilateral L4, and bilateral L5 nerve root distributions. Lumbar Spine CT: Findings highly suspicious for L3-L4 discitis/osteomyelitis. Airborne isolation 0.9% NS IV 120 MLS/HR Cefepime IV q12h Diflucan 800 MG PO daily pain management with [place] Pantoprazole 40 MG PO daily Vancomycin IV per pharmacy Vancomycin Iv q8h Coccidioides immitis antibody Blood culture MRSA screen Sputum culture Urine bacterial culture Infectious disease consult Spine consult HIV negative # Cardiomegaly # Congestive heart failure Chest X-ray: Cardiomegaly with CHF. Echocardiogram pending # Essential hypertension Amlodipine Monitor blood pressure # History of DVT( home medication Eliquis) Lovenox 100 MG SC q12hr # Type 2 diabetes mellitus # Mixed dyslipidemia Atorvastatin 40 Mg PO hs Carbohydrate consistent diet # Morbid obesity, BMI 41.4 Gait instability I have counseled the patient on healthy lifestyle modifications Diet: Carbohydrate consistent diet PUD prophylaxis: Protonix 40mg DVT prophylaxis: Lovenox 40mg Goals of care: Full code Plan discussed with patient Plan discussed with Dr. Ramey Plan discussed with: Patient, Other (RN) My Orders My Orders Orders - ANIYAH LEMUS Procedure Category Date Status Time * Infectious Aryan- Dr. PEREZ 08/16/25 Transmitted Pawan Grvoes 11:37 Visit Coding STANDARD RES Billing Provider: JACINTO RAMEY MD Date of Service if different f: Aug 16, 2025 Common Visit Codes: [id number] INP/OBS CARE(HIGH) ANIYAH LEMUS RESIDENT Aug 16, 2025 14:27
[2025-08-16] MEDS: VANCOMYCIN 1GM/250ML KIT 250 ML IV SCH (14:28)
[2025-08-16] MEDS: GADOTERATE MEG 10 MMOL/20ml INJ (0.5MMOL/ml) IV ONE (16:20)
[2025-08-16 16:43] VITALS: PULSE 99; RESP 14; O2SAT 97
[2025-08-16 17:55] LABS: COVID19 ANTIGEN SOFIA FIA NEGATIVE (NEGATIVE)
--- NOTE | 2025-08-16 20:36 | DVHINCON2 ---
Date of service: Aug 16, 2025 Family History: Diabetes mellitus G8 FATHER FH: lung cancer G8 MOTHER Allergies: Coded Allergies: NO KNOWN ALLERGIES (Unverified , 08/07/25) Home Meds Active Scripts Acetaminophen W/ Codeine (Tylenol W/Cod #3) 1 Tab Tb, 1 TAB PO Q6HPRN, #10 TAB 0 Refills Prov:GEORGE CARLSON 08/07/25 Cyclobenzaprine Hcl (Cyclobenzaprine Hcl) 5 Mg Tab, 1 TAB PO QPM PRN, #14 TAB 0 Refills Prov:GEORGE CARLSON 08/07/25 Current Medications Current Medications Medications (Trade) Dose Ordered Sig/Porsche Route PRN Reason Start Time Stop Time Status Last Admin Sodium Chloride 1,000 ml @ 120 mls/hr Q8H20M IV 08/15/25 21:45 08/16/25 14:28 Acetaminophen/ Hydrocodone Bitart (Maypearl 5/325MG Tab) 1 tab Q4HP PRN PO MODERATE PAIN (4-6 PAIN SCALE) 08/15/25 21:45 08/16/25 16:52 Amlodipine Besylate (Norvasc Tablet) 10 mg DAILY PO 08/16/25 10:00 08/16/25 10:00 Enoxaparin Sodium (Lovenox) 100 mg Q12HR SC 08/15/25 22:00 08/16/25 10:35 Atorvastatin Calcium (Lipitor) 40 mg HS PO 08/15/25 22:00 08/16/25 02:01 Pantoprazole Sodium (Protonix Tablet) 40 mg DAILY@0600 PO 08/16/25 06:00 08/16/25 06:10 Vancomycin HCl 0 ml @ 0 mls/hr PER PHARMACY IV 08/15/25 22:00 Cefepime HCl 50 ml @ 12.5 mls/hr Q12HR IV 08/15/25 22:00 08/16/25 03:41 DC Vancomycin HCl 250 ml @ 250 mls/hr Q1H IV 08/15/25 22:15 08/16/25 00:14 DC Vancomycin HCl 250 ml @ 250 mls/hr Q1H IV 08/16/25 03:45 08/16/25 05:44 DC 08/16/25 04:54 Cefepime HCl 50 ml @ 12.5 mls/hr Q12H IV 08/16/25 05:30 08/16/25 18:12 Fluconazole (Diflucan Tablet) 800 mg DAILY PO 08/16/25 10:00 08/16/25 12:24 Vancomycin HCl 250 ml @ 200 mls/hr Q8H IV 08/16/25 14:00 08/16/25 14:28 Ergocalciferol (Vitamin D 50,000 Unit) 50,000 unit Q7D PO 08/16/25 20:30 UNV Vital Signs Vital Signs Date Time Temp Pulse Resp B/P (MAP) Pulse Ox O2 Delivery O2 Flow Rate FiO2 08/16/25 18:00 86 14 140/93 (109) 94 08/16/25 16:43 Room Air* 0 21 08/16/25 16:43 98.1 98.1 Labs/Diagnostic Data Labs Test 08/16/25 16:30 08/16/25 13:15 08/16/25 06:30 08/16/25 05:30 Range/Units Influenza Type A Antigen Negative Negative Influenza Type B Antigen Negative Negative SARS-CoV-2 Antigen (Rapid) Negative NEGATIVE HIV (1&2) Antibody Negative Negative Prothrombin Time 10.5 9.3-11.8 sec Prothrombin Time INR 0.99 0.9-1.15 Activated Partial Thromboplast Time 29.6 24.5-34.5 SEC White Blood Count 4.6 # 4.4-10.8 10^3/uL Red Blood Count 4.23 L 4.5-5.90 10^6/uL Hemoglobin 11.7 L 13.5-17.5 g/dL Hematocrit 34.7 L 41.0-53.0 % Mean Corpuscular Volume 82.0 80.0-100.0 fL Mean Corpuscular Hemoglobin 27.7 L 28.0-32.0 pg Mean Corpuscular Hemoglobin Concent 33.8 32.0-36.0 g/dL Red Cell Distribution Width 16.4 H 11.8-14.3 % Platelet Count 239 140-450 10^3/uL Mean Platelet Volume 6.8 L 6.9-10.8 fL Neutrophils (%) (Auto) 53.2 37.0-80.0 % Lymphocytes (%) (Auto) 30.6 10.0-50.0 % Monocytes (%) (Auto) 11.4 0.0-12.0 % Eosinophils (%) (Auto) 4.3 0.0-7.0 % Basophils (%) (Auto) 0.5 0.0-2.0 % Neutrophils # (Auto) 2.4 1.6-8.6 10 ^3/uL Lymphocytes # (Auto) 1.4 0.4-5.4 10 ^3/uL Monocytes # (Auto) 0.5 0-1.3 10 ^3/uL Eosinophils # (Auto) 0.2 0-0.8 10 ^3/uL Basophils # (Auto) 0 0-0.2 10 ^3/uL Nucleated Red Blood Cells 0.1 % Sodium Level 143 136-145 mmol/L Potassium Level 3.6 3.5-5.1 mmol/L Chloride Level 108 H 98-107 mmol/L Carbon Dioxide Level 27 20-31 mmol/L Anion Gap 8 5-15 Blood Urea Nitrogen 20 9-23 mg/dL Creatinine 0.94 0.700-1.30 mg/dL Glomerular Filtration Rate Calc 99 >90 mL/min BUN/Creatinine Ratio 21.3 H 10.0-20.0 Serum Glucose 102 74-106 mg/dL Hemoglobin A1c 5.5 <5.7 % A1C Calcium Level 8.5 L 8.7-10.4 mg/dL Magnesium Level 2.0 1.6-2.6 mg/dL Total Bilirubin 0.2 0.2-1.0 mg/dL Aspartate Amino Transferase (AST) 26 13-40 U/L Alanine Aminotransferase (ALT) 52 H 7-40 U/L Alkaline Phosphatase 88 46-116 U/L Total Protein 6.1 5.7-8.2 g/dL Albumin 3.4 3.2-4.8 g/dL Vitamin B12 Level 487 211-911 pg/mL Vitamin D 25-Hydroxy 24.8 L 30.0-100 ng/mL Thyroid Stimulating Hormone (TSH) 1.49 0.55-4.78 uIU/mL Test 08/15/25 18:57 08/15/25 18:31 08/15/25 18:25 Range/Units Lactic Acid Level 1.2 0.4-2.0 mmol/L Erythrocyte Sedimentation Rate 66 H 0-20 mm/hr Urine Color Light-yellow Yellow Urine Clarity Clear Clear Urine pH 6.0 5.0-9.0 Urine Specific [place] 1.024 1.001-1.035 Urine Protein Negative Negative Urine Ketones Trace Negative Urine Blood Negative Negative /uL Urine Nitrite Negative Negative Urine Bilirubin Negative Negative Urine Urobilinogen Normal Negative mg/dL Urine Leukocyte Esterase Negative Negative /uL Urine RBC <1 0 - 3 /hpf Urine Microscopic WBC < 1 0-3 /HPF Urine Squamous Epithelial Cells Few <5 /hpf Urine Bacteria None seen None Seen /hpf Urine Glucose Normal Normal mg/dL Microbiology Date/Time Source Procedure Growth Status 08/15/25 19:09 Blood Blood Culture - Preliminary NO GROWTH AFTER 24 HOURS OF INCUBATION. 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 male, with a past medical history of spinal abscess, coccidioidomycosis (valley fever), impaired mobility, chronic low back pain, lumbar stenosis, GERD, type 2 diabetes mellitus, hypertension, and DVT on Eliquis, who presents with severe low back pain for 10 months, acutely worsened over the last 3 days to 10/10 intensity, localized to the lumbar region without radiation and aggravated by movement. He was admitted previously to [facility] in February 2025 and diagnosed with valley fever, and has been on fluconazole as outpatient. He has a history of multiple incarcerations () and is currently wheelchair bound due to a prior workplace injury. He denies bowel incontinence, saddle paresthesias, pelvic numbness, and extremity weakness. No sick contacts, weight loss, or fevers are reported. On this admission, CT lumbar spine without contrast shows destructive changes centered at the L3L4 endplates with surrounding paravertebral inflammatory changes, highly suspicious for discitis/osteomyelitis. MRI lumbar spine with and without contrast confirms L3L4 discitis and osteomyelitis with abscess and/or phlegmon extending into the anterior epidural space along the posterior margins of the L2L5 vertebrae (greater on the right), possibly also in the posterior epidural space at L3L4. The process measures approximately 9.7 cm longitudinally and results in moderate spinal canal stenosis at L3L4 and moder ate to severe spinal canal stenosis at L4, with significant bilateral neuroforaminal stenosis at L2L3, L3L4, and L4L5 and displacement of the aorta and IVC anteriorly. Findings may correspond to lower extremity radicular symptoms in L2, bilateral L3, bilateral L4, and bilateral L5 nerve root distributions. Neurosurgery has been consulted. He has been started empirically on vancomycin, cefepime, and continued on fluconazole. Blood cultures to date are no growth. Prior serologies show cocci complement fixation titer 1:32 in April, decreasing to 1:16 as of 07/11/2025 on therapy. HIV, influenza A/B, and COVID-19 tests are negative. CRP has risen from 22 (June) to 40 (July), raising concern for ongoing or worsening infection. Current cocci antibody testing is pending. 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 TB (Pott disease) remains a consideration due to incarceration history, but clinical suspicion is lower. Given the extent of epidural disease, risk for neurologic compromise (leg weakness, chronic immobility, potential for [employer]AGE [employer] ADMINISTRATOR involvement), and possible failure of current azole therapy, escalation to amphotericin B is recommended, with consideration of intrathecal amphotericin B at a center with appropriate expertise. Bacterial epidural abscess/osteomyelitis is considered less likely at this time in the setting of known cocci spinal infection and negative cultures to date, but empiric broad-spectrum antibiotics are reasonable pending further data. Plan: \-- Coccidioidomycosis with lumbar discitis/osteomyelitis and epidural phlegmon/abscess (L2L5): \-- High suspicion for disseminated coccidioidomycosis involving the vertebrae and epidural space based on imaging, prior positive cocci titers, and clinical course. \-- Obtain/confirm current coccidioides serologies, including complement fixation titers; follow results and trends closely. \-- Check ESR and CRP now to assess inflammatory burden and to compare with prior trend (CRP 22 ? 40 from June to July); continue to trend to evaluate for treatment response vs. unresolving infection. \-- Antifungal therapy: \-- Start amphotericin B systemically in addition to IV fluconazole, given concern for disseminated spinal coccidioidomycosis with large epidural component, progressive pain, and risk of neurologic deterioration. \-- Intrathecal therapy / higher level of care: \-- Consider lumbar puncture for diagnostic evaluation and to facilitate intrathecal amphotericin B administration, if this is within the facilitys capabilities. \-- If intrathecal amphotericin B cannot be provided at this facility, strongly consider transfer to a higher level of care with valley fever expertise (e.g., dedicated valley fever center in [place]) for evaluation and management, including potential intrathecal therapy and coordinated neurosurgical care. \-- Neurosurgical management: \-- Continue close collaboration with Neurosurgery for assessment of spinal stability and timing/need for surgical evacuation of the epidural collection, especially if neurologic status worsens. \-- Epidural abscess/phlegmon at L2L5 with canal stenosis qualifies as significant neurologic disease and may warrant surgical evacuation depending on clinical course. \-- Neurologic monitoring: \-- Monitor frequently for new or worsening leg weakness, sensory changes, bowel/bladder dysfunction, saddle anesthesia, or other signs of cord/nerve root compromise. \-- If patient develops headache, nausea, vomiting, blurry vision, or other focal neurologic symptoms, obtain MRI brain with and without contrast to evaluate for ST[employer]AGE [employer] ADMINISTRATOR coccidioidomycosis/brain abscess. \-- Rule out spinal tuberculosis (Pott disease): \-- Risk factor: prolonged history of incarceration (). \-- Patient denies sick contacts, weight loss, and fevers; overall clinical suspicion for TB is low at this time. \-- Order Quantiferon-TB Gold to assess for TB exposure/infection. \-- No isolation precautions are required at this time based on current clinical suspicion; reassess if new concerning symptoms develop or if TB testing returns positive. \-- Broad-spectrum antibacterial coverage / bacterial vertebral osteomyelitis- epidural abscess: \-- Currently on empiric vancomycin and cefepime plus antifungal therapy. \-- Blood cultures to date are no growth. \-- If blood cultures remain negative at 4872 hours, and no new evidence emerges to support bacterial vertebral osteomyelitis/epidural abscess, it would be reasonable to discontinue vancomycin and cefepime, given low current suspicion for bacterial etiology in the setting of a known coccidioidal spinal infection. \-- Monitoring and supportive care while on amphotericin B: \-- Monitor renal function (BUN, creatinine) closely. \-- Monitor electrolytes (especially potassium and magnesium) closely; replace per protocol. \-- Continue pain management as initiated, adjusting as needed for adequate control while avoiding oversedation that could mask evolving neurologic defic its. \-- Chronic comorbidities (DM2, HTN, DVT on Eliquis, GERD, impaired mobility): \-- Continue home medications as appropriate and as compatible with current therapies: \-- Amlodipine continue for hypertension management unless contraindicated. \-- Apixaban (Eliquis) continue for history of DVT if neurosurgical team agrees and there is no immediate plan for invasive spinal procedures; reassess anticoagulation strategy if intervention is scheduled. \-- Atorvastatin continue if no contraindications. \-- Fluconazole see antifungal plan above regarding transition to amphotericin B. \-- Maintain good glycemic control for optimal infection outcomes (specific regimen not provided in transcript). \-- Address mobility and pressure injury prevention given wheelchair dependence and limited mobility (specific plan not detailed in transcript). Isolation Precautions: standard; no airborne or additional isolation indicated at this time based on current low suspicion for TB. Assessment and plan was discussed with the patient as written above Plan is subject to change pending incorporation of new incoming information/diagnostics. Updates may be added as addendum at the bottom (OR TOP) of this note Thank you for interesting consult. ID will continue to follow. Please contact Infectious Disease for any questions or concerns. Damian Marvin M.D. [facility] Ph: ? Teams text: Electronically signed by: Damian Marvin MD, 08/16/2025 \ History: The patient's chart and medications were reviewed in detail and the patient was seen and examined. History obtained from: patient (per transcript)Carmella Tejada is a 10 y.o. male, with a past medical history of spinal abscess, coccidioidomycosis (valley fever), impaired mobility, chronic low back pain, lumbar stenosis, GERD, type 2 diabetes mellitus, hypertension, and DVT on Eliquis, who presents with low back pain for 10 months, worsening over the last 3 days to 10/10 intensity. Pain is localized to the lumbar spine without radiation and is aggravated by movement. He was admitted to [facility] in February 2025 and diagnosed with valley fever, and he is currently taking fluconazole at home. He reports a history of incarceration multiple times from 2014 to 2024. He is currently wheelchair bound after a workplace injury. He denies bowel incontinence, saddle paresthesias, pelvic numbness, and extremity weakness. He underwent right knee surgery in 1991. He uses marijuana. He denies ethanol (alcohol) use, other illicit drug use, and tobacco use. On arrival, he is afebrile and hemodynamically stable. He has spinal tenderness in the lumbar region along the vertebrae, with 5/5 leg strength and full sensation throughout his lower extremities. Lactic acid is 1.2. BUN is 20 and creatinine is 1.17. Platelet count is 273. Urinalysis is unremarkable. He was started empirically on vancomycin, cefepime, and continued on fluconazole. CT lumbar spine without contrast shows destructive change centered at L3L4 with surrounding paravertebral inflammatory changes, highly suspicious for discitis/osteomyelitis with associated height loss. Blood cultures were obtained; neurosurgery was consulted. MRI lumbar spine with and without contrast confirms L3L4 discitis and osteomyelitis with an abscess and/or phlegmon extending into the anterior epidural space along the posterior margins of the L2L5 vertebrae, greater on the right, possibly also involving the posterior epidural space at L3L4. The abnormal process measures approximately 9.7 cm longitudinally, causing moderate spinal canal stenosis at L3L4, moderate to severe spinal canal stenosis at L4, and significant bilateral neuroforaminal stenosis at L2L3, L3L4, and L4L5, with partial effacement of the lateral recesses at L3L4 and anterior displacement of the aorta and IVC. Prior cocci serologies show complement fixation titer 1:32 in April, decreasing to 1:16 as of 07/11/2025, presumably with treatment and clinically steady since then. CRP trended from 22 in June to 40 in July. Current cocci antibody testing is pending. HIV, influenza A/B, and COVID-19 tests are negative. Chest X-ray shows cardiomegaly with findings consistent with congestive heart failure; lungs are otherwise clear. Neurosurgery has evaluated the patient. Infectious Disease is consulted for evaluation of possible TB versus progression of coccidioidal spinal infection and for recommendation on antifungal regimen and need for higher level of care. Review of Systems: A complete 10-system review of systems was not fully documented in the transcript. Available information is as follows: -CONSTITUTIONAL: Denies weight loss and fevers (per history related to TB risk). -HEENT: Not discussed. -RESPIRATORY: Not discussed. -CARDIOVASCULAR: Not discussed (no chest pain, palpitations, or dyspnea specifically documented). -GASTROINTESTINAL: Denies bowel incontinence. No additional GI symptoms discussed. -GENITOURINARY: Denies urinary/bowel incontinence; no other symptoms discussed. -MUSCULOSKELETAL: Reports chronic low back pain, currently severe (10/10), localized to lumbar region, worsened with movement; no reported extremity weakness. -SKIN: Not discussed. -NEUROLOGICAL: Denies extremity weakness, saddle paresthesias, and pelvic numbness. No mention of headache, nausea, vomiting, or blurry vision at this time (these are discussed as symptoms to monitor for future concern). -PSYCHIATRIC: Not discussed. -INFECTIOUS DISEASE/EXPOSURES: Denies sick contacts. History of incarceration from 2014 to 2024 (TB risk factor). Past Medical History: -Spinal abscess -Coccidioidomycosis (valley fever) -Impaired mobility (wheelchair bound after workplace injury) -Chronic low back pain -Lumbar spinal stenosis -Gastroesophageal reflux disease (GERD) -Type 2 diabetes mellitus -Hypertension -Deep vein thrombosis (on apixaban/Eliquis) (Additional past medical history not provided in transcript.) Past Surgical History: -Right knee surgery 1991 (Other surgical history not provided in transcript.) Home Medications: (Per transcript; doses and schedules not specified beyond names.) -Amlodipine for hypertension -Apixaban (Eliquis) for DVT -Atorvastatin -Fluconazole for coccidioidomycosis / presumed lumbar osteomyelitis (Other home medications not provided in transcript.) Allergies: -Not provided in transcript. Family History: -Not provided in transcript. Social History: -History of incarceration multiple times from 2014 to 2024. -Currently wheelchair bound after a workplace injury. -Uses marijuana. -Denies ethanol (alcohol) use. -Denies illicit drug use other than marijuana. -Denies tobacco use. (Additional social history, including housing, employment, and support system, not provided in transcript.) Objective: Vital Signs on Arrival: -Temperature: 98.2 F -Blood Pressure: 122/84 mmHg -Pulse: 97 bpm -Respiratory Rate: Not clearly documented in transcript. -SpO2: 95% on room air (value interpreted from 95% on room air in transcript). Most Recent Vital Signs: -Not provided in transcript. Admission Weight: -Not provided in transcript. Physical Exam: General: NAD Neck: Supple. No masses. HEENT: PERRL. Normal lids and conjunctiva. Moist mucous membranes. Oropharynx without lesions, exudates or excessive erythema. Normal appearance of the external aspects of the nose and ears. Heart: Regular rhythm, normal rate. No murmur. No lower extremity edema. Lungs: Normal respiratory effort. Clear to auscultation bilaterally. No wheezes. No crackles. Abdomen: Soft. Non-tender. Non-distended. No masses or abdominal hernia. Msk: No digital cyanosis. Normal strength and tone in all 4 limbs. Lumbar spine: tenderness to palpation over the lumbar vertebrae (L3L4 region). Skin: Warm and dry, no rashes. Neuro: Alert. No facial droop or slurred speech. Extra-ocular movements intact. Sensation intact to soft touch in all 4 limbs. Strength 5/5 in bilateral lower extremities. Psych: Appropriate mood. Full affect. Oriented to person, place, time, and situation. Lines: -Not provided in transcript. Diagnostic Studies: Available diagnostic studies were reviewed personally (per transcript). Significant relevant results and findings are outlined below and addressed in the Assessment and Plan above. Laboratory (per transcript): -Lactic acid: 1.2 -Platelet count: 273 -BUN: 20 -Creatinine: 1.17 -Urinalysis: unremarkable -White blood cell count and additional chemistries not clearly documented due to store associate ambiguity. -Cocci complement fixation titers: -1:32 in April 2025 -1:16 as of 07/11/2025 (on treatment) -CRP trend: -22 in June -40 in July -HIV: negative -Influenza A/B: negative -COVID-19: negative -Current cocci antibody testing: pending -ESR and updated CRP: planned (not yet resulted) -Quantiferon-TB Gold: planned (not yet resulted) Pertinent Imaging: -CT Lumbar Spine Without Contrast -Destructive changes centered at the L3L4 endplates with surrounding paravertebral inflammatory changes. -Findings highly suspicious for discitis and osteomyelitis with associated vertebral height loss. -MRI Lumbar Spine With and Without Contrast -No acute fracture of the lumbar spine. -L3L4 discitis and osteomyelitis. -Abscess and/or phlegmon extending into the anterior epidural space along the posterior margins of the L2L5 vertebrae, greater on the right. -Possible involvement of the posterior epidural space in the L3L4 region. -Abnormal process measures approximately 9.7 cm longitudinally. -Causes moderate spinal canal stenosis at L3L4 and moderate to severe spinal canal stenosis at L4. -Significant neuroforaminal stenosis bilaterally at L2L3, L3L4, and L4L5. -Partial effacement of the lateral recesses at L3L4. -Phlegmon extends from the anterior margins of L2 to L5 vertebral bodies and displaces the aorta and IVC anteriorly. -Findings may correspond to lower extremity radicular symptoms on the right in L2, bilateral L3, bilateral L4, and bilateral L5 nerve root distributions. -Chest X-Ray -Cardiomegaly with findings consistent with congestive heart failure. -Lungs otherwise clear. Plan discussed with: Patient DAMIAN MARVIN MD Aug 16, 2025 20:36
[2025-08-16] MEDS: ERGOCALCIFEROL 50,000 UNIT(1.25MG) CAP PO SCH (21:11)
[2025-08-16] MEDS ORDERED: ACETAMINOPHEN 325 MG TAB PO SCH (22:00)
[2025-08-16] MEDS ORDERED: diphenhydrAMINE HCL 50 MG/1 ML VL IV SCH (22:00)
[2025-08-17 05:30] VITALS: BP 140/87; PULSE 91; RESP 18; TEMP 98.2; O2SAT 98
[2025-08-17] MEDS: CEFEPIME 1GM/50ML 50 ML IV SCH (08:30)
[2025-08-17 09:00] VITALS: BP 140/97; PULSE 92; RESP 16; TEMP 98.1; O2SAT 100
[2025-08-17] MEDS ORDERED: diphenhydrAMINE HCL 50 MG/1 ML VL IV SCH (09:30)
[2025-08-17] MEDS ORDERED: ACETAMINOPHEN 325 MG TAB PO SCH (09:30)
[2025-08-17 10:04] LABS: Hematocrit 36.5 % (41.0-53.0); Hemoglobin 12.1 g/dL (13.5-17.5); Mean Corpuscular Hemoglobin 27.2 pg (28.0-32.0); Mean Corpuscular Volume 81.7 fL (80.0-100.0); Nucleated Red Blood Cells % 0.2 %
--- NOTE | 2025-08-17 10:06 | DVHPNRES ---
Progress Note Date Seen: Aug 17, 2025 Resident Creating Document: ANIYAH LEMUS Medical Necessity Reason Pt with a Central, PICC or Fol: No Subjective Review of Systems Patient is a 50-year-old male with past medical history of DVT, coccidioidomycosis, presented to [facility] ED with complaint of lower back pain. The patient reports severe stabbing lower back pain rated 10/10 that started in November of this year. The pain radiates to the lower abdomen and both legs and worsens significantly with movement. The patient states that the pain is associated with vomiting and numbness in the left foot. 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 The patient report that he contracted coccidioidomycosis while he was in longterm. He reports that his current pain medications, codeine and Tylenol, are not effective. He also has a history of deep vein thrombosis diagnosed in 2009 and is currently taking Eliquis 2.5 mg twice daily. On 08/17/25, Patient reports feeling good overall but continues to experience severe back pain rated 10/10. Lumbar puncture has been ordered for CSF analysis. Past surgical history: Right knee surgery 1991 Family history: Father-DM2 Personal history: Use marijuana recently for pain but denies any EtOH or illicit drug use Allergy: No known allergy Patient seen and examined at bedside. Patient is alert and oriented to time, place person and responding to all questions. Eyes: No Pain, No Vision change, No Conjunctivae inflammation, No Eyelid inflammation, No Other, No Redness ENT: No Ear pain, No Ear discharge, No Nose pain, No Nose discharge, No Nose congestion, No Mouth pain, No Mouth swelling, No Throat pain, No Throat swelling, No Other Cardiovascular: No Chest Pain, No Palpitations, No Orthopnea, No Paroxysmal No Dyspnea, No Edema, No Lt Headedness, No Other Respiratory: No Cough, No Dry, Shortness of breath, No SOB with exertion, No Wheezing, No Hemoptysis, No Pleuritic Pain, No Sputum, No Other Gastrointestinal: Nausea, Vomiting, Abdominal Pain, No Diarrhea, No Constipation, No Melena, No Hematochezia, No Other Genitourinary: No Dysuria, No Frequency, No Incontinence, No Hematuria, No Retention, No Other Musculoskeletal: No other, No neck pain, No shoulder pain, No arm pain, back pain, No hand pain, No leg pain, No foot pain Skin: No Rash, No Lesions, No Jaundice, No Bruising, No Other Objective vital signs Vital Sign Date Time Temp Pulse Resp B/P (MAP) Pulse Ox O2 Delivery O2 Flow Rate FiO2 08/17/25 09:00 98.1 92 16 140/97 (111) 100 98.1 08/17/25 08:00 Room Air* 0 21 Total Intake and Output 08/16/25 08/16/25 08/17/25 15:00 23:00 07:00 Intake Total 810.0 ml 970 ml Output Total 350 ml 1350 ml Balance 460.0 ml -380 ml medications Current Medications Medications Dose Ordered Sig/Porsche Route Start Time Stop Time Status Last Admin Dose Admin Sodium Chloride 1,000 ml @ 120 mls/hr Q8H20M IV 08/15/25 21:45 08/17/25 08:17 120 MLS/HR Acetaminophen/ Hydrocodone Bitart 1 tab Q4HP PRN PO 08/15/25 21:45 08/17/25 08:31 1 TAB Amlodipine Besylate 10 mg DAILY PO 08/16/25 10:00 08/16/25 10:00 10 MG Enoxaparin Sodium 100 mg Q12HR SC 08/15/25 22:00 08/16/25 22:40 100 MG Atorvastatin Calcium 40 mg HS PO 08/15/25 22:00 08/16/25 22:39 40 MG Pantoprazole Sodium 40 mg DAILY@0600 PO 08/16/25 06:00 08/17/25 06:16 40 MG Vancomycin HCl 0 ml @ 0 mls/hr PER PHARMACY IV 08/15/25 22:00 Vancomycin HCl 250 ml @ 200 mls/hr Q8H IV 08/16/25 14:00 08/17/25 06:16 200 MLS/HR Ergocalciferol 50,000 unit Q7D PO 08/16/25 20:30 08/16/25 21:11 50,000 UNIT Fluconazole 100 ml @ 100 mls/hr 10,11,12,13 IV 08/17/25 10:00 Amphotericin B Liposome 600 mg/ Dextrose 150 ml @ 75 mls/hr DAILY@1300 IV 08/17/25 13:00 Cefepime HCl 50 ml @ 12.5 mls/hr Q12H IV 08/17/25 08:30 08/17/25 08:30 12.5 MLS/HR Acetaminophen 650 mg DAILY@1230 PO 08/17/25 12:30 Diphenhydramine HCl 25 mg DAILY@1230 IV 08/17/25 12:30 Examination General Appearance: Cooperative. Well developed. Well nourished. NAD Head Exam: Normal inspection Neck Exam: Normal inspection. Non-tender. Normal alignment Pulmonary/Respiratory: Chest non-tender. Clear bilateral breath sounds, no crackles, no wheezing. Cardiovascular/Chest: Regular rate and rhythm. No murmurs. No JVD. Peripheral Pulses: 2+ Radial (R). 2+ Radial (L). 2+ Pedal (R). 2+ Pedal (L) Abdominal Exam: Abdominal distension. Normal bowel sounds. Soft. normal abdomen, no visible veins, Nontender. No hepatospenomegaly. No masses Ankle Exam: Negative ankle edema Lower extremities: Negative lower extremity edema. Numbness and tingling sensation in bilateral lower extremity. Neuro/Mental Status: A&O x4. Coherent. Thoughts/Psych: Normal thought pattern. Appropriate mood and affect. Good judgement and insight Skin Exam: Normal inspection. Normal color. Warm. Dry laboratory and microbiology Test 08/17/25 09:37 Range/Units Serum Glucose Pending Microbiology Date/Time Source Procedure Growth Status 08/15/25 19:09 Blood Blood Culture - Preliminary NO GROWTH AFTER 24 HOURS OF INCUBATION. 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 L3-L4 discitis and osteomyelitis, with abscess and/or phlegmon extending into the anterior epidural space along the posterior margins of the L2-L5 vertebral bodies, greater on the right, and possibly also in the posterior epidural space at the L3-L4 level. This process measures 9.7 cm longitudinal and causes moderate spinal canal stenosis at L3-L4 and moderate to severe spinal canal stenosis at L4- LAdditionally, phlegmon extends along the anterior margins of the L2-L5 vertebral bodies and displaces the aorta and IVC anteriorly. Recommend spinal surgery consultation if not already obtained. Significant neural foraminal stenosis on the right at L2-L3, bilaterally at L3-L4, and bilaterally at L4-L5; and partial effacement of the lateral recesses at the L3-L4 and L4-L5 levels. These findings may correspond to lower extremity radicular symptoms in the right L2, bilateral L3, bilateral L4, and bilateral L5 nerve root distributions. Lumbar Spine CT: Findings highly suspicious for L3-L4 discitis/osteomyelitis. Airborne isolation 0.9% NS IV 120 MLS/HR Cefepime IV q12h Diflucan 800 MG PO daily pain management with [facility] Pantoprazole 40 MG PO daily Vancomycin IV per pharmacy Vancomycin Iv q8h Coccidioides immitis antibody Blood culture MRSA screen Sputum culture Urine bacterial culture Infectious disease consult: Start systemic amphotericin B + continue IV fluconazole. Maintain empiric vancomycin/cefepime until cultures negative; discontinue if bacterial infection unlikely. Consider lumbar puncture for CSF analysis and possible intrathecal amphotericin B. If intrathecal therapy unavailable, transfer to [facility] for advanced care and neurosurgical evaluation. Spine consult HIV negative Lumbar puncture # Cardiomegaly # Congestive heart failure Chest X-ray: Cardiomegaly with CHF. Echocardiogram pending # Essential hypertension Amlodipine Monitor blood pressure # History of DVT( home medication Eliquis) Lovenox 100 MG SC q12hr # Type 2 diabetes mellitus # Mixed dyslipidemia Atorvastatin 40 Mg PO hs Carbohydrate consistent diet # Morbid obesity, BMI 41.4 Gait instability I have counseled the patient on healthy lifestyle modifications Diet: Carbohydrate consistent diet PUD prophylaxis: Protonix 40mg DVT prophylaxis: Lovenox 40mg Goals of care: Full code Plan discussed with patient Plan discussed with Dr. Ramey Plan discussed with: Patient, Other My Orders My Orders Orders - ANIYAH LEMUS RESIDENT Procedure Category Date Status Time * Infectious Aryan- Dr. PEREZ 08/16/25 Transmitted [facility]ves 11:37 Comprehensive LAB 08/17/25 In Process Metabolic Panel 04:00 Visit Coding STANDARD RES Billing Provider: JACINTO RAMEY MD Date of Service if different f: Aug 17, 2025 Common Visit Codes: [id number] INP/OBS CARE(HIGH) MARIAHANIYAH RESIDENT Aug 17, 2025 10:06
[2025-08-17 10:15] LABS: Albumin 3.7 g/dL (3.2-4.8); Alkaline Phosphatase 92 U/L (46-116); Anion Gap 7 (5-15); BUN/Creatinine Ratio 9.1 (10.0-20.0); Calcium 9.0 mg/dL (8.7-10.4); Carbon Dioxide 28 mmol/L (20-31); Chloride 105 mmol/L (98-107); Potassium 3.6 mmol/L (3.5-5.1); Sodium 140 mmol/L (136-145); Total Protein 6.6 g/dL (5.7-8.2)
[2025-08-17 10:16] LABS: Alanine Aminotransferase 58 U/L (7-40); Bilirubin, Total 0.4 mg/dL (0.2-1.0); Blood Urea Nitrogen 8 mg/dL (9-23); Glucose 119 mg/dL (74-106)
[2025-08-17 12:50] VITALS: BP 148/97; PULSE 96; RESP 20; TEMP 98.3; O2SAT 98
[2025-08-17] MEDS: FLUCONAZOLE 200MG/100ML 100 ML IV SCH (13:00)
[2025-08-17] MEDS: ACETAMINOPHEN 325 MG TAB PO SCH (13:00)
[2025-08-17] MEDS: diphenhydrAMINE HCL 50 MG/1 ML VL IV SCH (13:01)
[2025-08-17 16:59] VITALS: BP 137/86; PULSE 104; RESP 16; TEMP 101.2; O2SAT 95
[2025-08-17 20:00] VITALS: PULSE 109; RESP 18; O2SAT 97
[2025-08-17 21:00] VITALS: BP 147/84; PULSE 109; RESP 18; TEMP 99.8; O2SAT 97
[2025-08-18] VITALS (7 sets, daily range): BP systolic 130–159; BP diastolic 77–98; PULSE 88–104; RESP 17–18; TEMP 98–98.9; O2SAT 94–99
--- NOTE | 2025-08-18 01:10 | DVHSR ---
APPROVED REPORT EXAM: Two-dimensional and M-mode echocardiogram with Doppler and color Doppler. Blood Pressure: 140/87 mmHg INDICATION R/O Endocarditis RISK FACTORS Height: 70, Weight: 288 DIMENSIONS LVDd 4.5 (3.8-5.7cm) LA (2D) 4.1 (1.9-4.0cm) Aortic Root 3.8 (2.0-3.7cm) LVDs 3.2 (2.5-4.0cm) LA (MM) (1.9-4.0cm) Aortic Cusp Exc 1.9 (1.5-2.0cm) EF (%) 57.0 (55-70%) Rt. Atrium 4.1 (1.9-4.0cm) Asc. Aorta cm Mitral Valve Mitral Mitral Stenosis E wave 0.86m/s MV Mean GR. mmHg A wave 0.81m/s MV Peak GR. mmHg E/A ratio 1.1 2D MVA cm2 DECEL Time 192ms PRESS 1/2 Time ms Aortic Valve Aortic Valve Aortic Stenosis V1 1.15m/s AO Mean GR. 4mmHg V2 1.38m/s AO Peak GR. 8mmHg LVOT Diameter 2.2 (1.8-2.4cm) Doppler CORAL 3.17cm2 Pulmonic Valve V2 1.02m/s Conclusion LV EF IS 65% AND IS NORMAL NORMAL VALVES SLIGHTLY DILATED RV BUT NORMAL FUNCTION NO EFFUSION
[2025-08-18] MEDS: VANCOMYCIN 1.5GM/250ML 250 ML IV SCH (02:36)
[2025-08-18 06:10] LABS: Hematocrit 37.9 % (41.0-53.0); Hemoglobin 12.7 g/dL (13.5-17.5); Mean Corpuscular Hemoglobin 27.7 pg (28.0-32.0); Mean Corpuscular Volume 82.2 fL (80.0-100.0); Nucleated Red Blood Cells % 0.2 %
[2025-08-18 06:35] LABS: Albumin 3.8 g/dL (3.2-4.8); Alkaline Phosphatase 101 U/L (46-116); Anion Gap 9 (5-15); BUN/Creatinine Ratio 15.8 (10.0-20.0); Blood Urea Nitrogen 15 mg/dL (9-23); Calcium 9.1 mg/dL (8.7-10.4); Carbon Dioxide 27 mmol/L (20-31); Chloride 107 mmol/L (98-107); Glucose 90 mg/dL (74-106); Potassium 3.6 mmol/L (3.5-5.1); Sodium 143 mmol/L (136-145); Total Protein 6.7 g/dL (5.7-8.2)
[2025-08-18 06:36] LABS: Bilirubin, Total 0.4 mg/dL (0.2-1.0)
[2025-08-18 06:41] LABS: Alanine Aminotransferase 50 U/L (7-40)
--- NOTE | 2025-08-18 06:51 | DVHPN2 ---
Consult Progress Note Date Seen: Aug 17, 2025 Subjective Patient reports: No new complaints (pain w/ weight bearing legs) Objective vital signs Vital Sign Date Time Temp Pulse Resp B/P (MAP) Pulse Ox O2 Delivery O2 Flow Rate FiO2 08/18/25 05:00 98.1 88 18 130/85 (100) 99 98.1 08/17/25 20:00 Room Air* 0 21 Total Intake and Output 08/17/25 08/17/25 08/18/25 15:00 23:00 07:00 Intake Total 450 ml 1000 ml 1325 ml Output Total 1000 ml 2240 ml Balance 450 ml 0 ml -915 ml medications Current Medications Medications Dose Ordered Sig/Porsche Route Start Time Stop Time Status Last Admin Dose Admin Sodium Chloride 1,000 ml @ 120 mls/hr Q8H20M IV 08/15/25 21:45 08/17/25 08:17 120 MLS/HR Acetaminophen/ Hydrocodone Bitart 1 tab Q4HP PRN PO 08/15/25 21:45 08/18/25 06:02 1 TAB Amlodipine Besylate 10 mg DAILY PO 08/16/25 10:00 08/17/25 11:32 10 MG Enoxaparin Sodium 100 mg Q12HR SC 08/15/25 22:00 08/17/25 11:32 100 MG Atorvastatin Calcium 40 mg HS PO 08/15/25 22:00 08/17/25 22:25 40 MG Pantoprazole Sodium 40 mg DAILY@0600 PO 08/16/25 06:00 08/18/25 05:50 40 MG Vancomycin HCl 0 ml @ 0 mls/hr PER PHARMACY IV 08/15/25 22:00 Ergocalciferol 50,000 unit Q7D PO 08/16/25 20:30 08/16/25 21:11 50,000 UNIT Fluconazole 100 ml @ 100 mls/hr 10,,12,13 IV 08/17/25 10:00 08/17/25 17:13 100 MLS/HR Amphotericin B Liposome 600 mg/ Dextrose 150 ml @ 75 mls/hr DAILY@1300 IV 08/17/25 13:00 08/17/25 13:50 75 MLS/HR Cefepime HCl 50 ml @ 12.5 mls/hr Q12H IV 08/17/25 08:30 08/17/25 22:24 12.5 MLS/HR Acetaminophen 650 mg DAILY@1230 PO 08/17/25 12:30 08/17/25 13:00 650 MG Diphenhydramine HCl 25 mg DAILY@1230 IV 08/17/25 12:30 08/17/25 13:01 25 MG Vancomycin HCl 250 ml @ 166.667 mls/hr Q12H IV 08/18/25 02:00 08/18/25 02:36 166.667 MLS/HR laboratory and microbiology Laboratory Tests 08/18/25 05:40 Test 08/18/25 05:40 Range/Units Serum Glucose 90 74-106 mg/dL Problem List/Assessment/Plan Problems(with codes): (1) Acute exacerbation of chronic low back pain (2) Disseminated coccidioidomycosis (3) Coccidioidomycosis meningitis (4) Lumbar discitis (5) Intractable low back pain Problem List/Assessment/Plan Assessment/Plan Problems(with codes): (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 (3) Lumbar discitis (4) Acute exacerbation of chronic low back pain Plan/Recommendation ASSESSMENT AND PLAN: ID Problem List: \-- Lumbar L3L4 discitis/osteomyelitis with large anterior/epidural phlegmon/abscess (L2L5) causing spinal canal and foraminal stenosis \-- 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 male, with a past medical history of spinal abscess, coccidioidomycosis (valley fever), impaired mobility, chronic low back pain, lumbar stenosis, GERD, type 2 diabetes mellitus, hypertension, and DVT on Eliquis, who presents with severe low back pain for 10 months, acutely worsened over the last 3 days to 10/10 intensity, localized to the lumbar region without radiation and aggravated by movement. He was admitted previously to [facility] in February 2025 and diagnosed with valley fever, and has been on fluconazole as outpatient. He has a history of multiple incarcerations () and is currently wheelchair bound due to a prior workplace injury. He denies bowel incontinence, saddle paresthesias, pelvic numbness, and extremity weakness. No sick contacts, weight loss, or fevers are reported. On this admission, CT lumbar spine without contrast shows destructive changes centered at the L3L4 endplates with surrounding paravertebral inflammatory changes, highly suspicious for discitis/osteomyelitis. MRI lumbar spine with and without contrast confirms L3L4 discitis and osteomyelitis with abscess and/or phlegmon extending into the anterior epidural space along the posterior margins of the L2L5 vertebrae (greater on the right), possibly also in the posterior epidural space at L3L4. The process measures approximately 9.7 cm longitudinally and results in moderate spinal canal stenosis at L3L4 and moderate to severe spinal canal stenosis at L4, with significant bilateral neuroforaminal stenosis at L2L3, L3L4, and L4L5 and displacement of the aorta and IVC anteriorly. Findings may correspond to lower extremity radicular symptoms in L2, bilateral L3, bilateral L4, and bilateral L5 nerve root distributions. Neurosurgery has been consulted. He has been started empirically on vancomycin, cefepime, and continued on fluconazole. Blood cultures to date are no growth. Prior serologies show cocci complement fixation titer 1:32 in April, decreasing to 1:16 as of 07/11/2025 on therapy. HIV, influenza A/B, and COVID-19 tests are negative. CRP has risen from 22 (June) to 40 (July), raising concern for ongoing or worsening infection. Current cocci antibody testing is pending. 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 TB (Pott disease) remains a consideration due to incarceration history, but clinical suspicion is lower. Given the extent of epidural disease, risk for neurologic compromise (leg weakness, chronic immobility, potential for LUBRICATOR GRANULATOR involvement), and possible failure of current azole therapy, escalation to amphotericin B is recommended, with consideration of intrathecal amphotericin B at a center with appropriate expertise. Bacterial epidural abscess/osteomyelitis is considered less likely at this time in the setting of known cocci spinal infection and negative cultures to date, but empiric broad-spectrum antibiotics are reasonable pending further data. 08/17: takes fluconazole 400mg at home Plan: \-- Coccidioidomycosis with lumbar discitis/osteomyelitis and epidural phlegmon/abscess (L2L5): \-- High suspicion for disseminated coccidioidomycosis involving the vertebrae and epidural space based on imaging, prior positive cocci titers, and clinical course. \-- Obtain/confirm current coccidioides serologies, including complement fixation titers; follow results and trends closely. \-- CRP improved from 40 -->2 \-- Antifungal therapy: \-- Start amphotericin B systemically in addition to IV fluconazole, given concern for disseminated spinal coccidioidomycosis with large epidural component, progressive pain, and risk of neurologic deterioration. \-- Intrathecal therapy / higher level of care: \-- Consider lumbar puncture for diagnostic evaluation and to facilitate intrathecal amphotericin B administration, if this is within the facilitys capabilities. \-- If intrathecal amphotericin B cannot be provided at this facility, strongly consider transfer to a higher level of care with valley fever expertise (e.g., dedicated valley fever center in [place]) for evaluation and management, including potential intrathecal therapy and coordinated neurosurgical care. -- lumbar puncture studies should include protein, cell count, glucose, bacterial culture, fungal culture, afb culture, mtb pcr, cocci ab cf, administration of intrathecal amphotericin deoxycholate. \-- Neurosurgical management: \-- Continue close collaboration with Neurosurgery for assessment of spinal stability and timing/need for surgical evacuation of the epidural collection, especially if neurologic status worsens. \-- Epidural abscess/phlegmon at L2L5 with canal stenosis qualifies as significant neurologic disease and may warrant surgical evacuation depending on clinical course. \-- Neurologic monitoring: \-- Monitor frequently for new or worsening leg weakness, sensory changes, bowel/bladder dysfunction, saddle anesthesia, or other signs of cord/nerve root compromise. \-- If patient develops headache, nausea, vomiting, blurry vision, or other focal neurologic symptoms, obtain MRI brain with and without contrast to evaluate for LUBRICATOR GRANULATOR coccidioidomycosis/brain abscess. \-- Rule out spinal tuberculosis (Pott disease): \-- Risk factor: prolonged history of incarceration (). \-- Patient denies sick contacts, weight loss, and fevers; overall clinical suspicion for TB is low at this time. \-- Order Quantiferon-TB Gold to assess for TB exposure/infection. \-- No isolation precautions are required at this time based on current clinical suspicion; reassess if new concerning symptoms develop or if TB testing returns positive. \-- Broad-spectrum antibacterial coverage / bacterial vertebral osteomyelitis- epidural abscess: \-- Currently on empiric vancomycin and cefepime plus antifungal therapy. \-- Blood cultures to date are no growth. \-- If blood cultures remain negative at 4872 hours, and no new evidence emerges to support bacterial vertebral osteomyelitis/epidural abscess, it would be reasonable to discontinue vancomycin and cefepime, given low current suspicion for bacterial etiology in the setting of a known coccidioidal spinal infection. \-- Monitoring and supportive care while on amphotericin B: \-- Monitor renal function (BUN, creatinine) closely. \-- Monitor electrolytes (especially potassium and magnesium) closely; replace per protocol. \-- Continue pain management as initiated, adjusting as needed for adequate control while avoiding oversedation that could mask evolving neurologic deficits. \-- Chronic comorbidities (DM2, HTN, DVT on Eliquis, GERD, impaired mobility): \-- Continue home medications as appropriate and as compatible with current therapies: \-- Amlodipine continue for hypertension management unless contraindicated. \-- Apixaban (Eliquis) continue for history of DVT if neurosurgical team agrees and there is no immediate plan for invasive spinal procedures; reassess anticoagulation strategy if intervention is scheduled. \-- Atorvastatin continue if no contraindications. \-- Fluconazole see antifungal plan above regarding transition to amphotericin B. \-- Maintain good glycemic control for optimal infection outcomes (specific regimen not provided in transcript). \-- Address mobility and pressure injury prevention given wheelchair dependence and limited mobility (specific plan not detailed in transcript). Isolation Precautions: standard; no airborne or additional isolation indicated at this time based on current low suspicion for TB. Assessment and plan was discussed with the patient as written above Plan is subject to change pending incorporation of new incoming information/diagnostics. Updates may be added as addendum at the bottom (OR TOP) of this note Thank you for interesting consult. ID will continue to follow. Please contact Infectious Disease for any questions or concerns. Damian Groves M.D. [facility] Ph: ? Teams text: Electronically signed by: Damian Groves MD, 08/17/2025 \ Physical Exam: General: NAD Neck: Supple. No masses. HEENT: PERRL. Normal lids and conjunctiva. Moist mucous membranes. Oropharynx without lesions, exudates or excessive erythema. Normal appearance of the external aspects of the nose and ears. Heart: Regular rhythm, normal rate. No murmur. No lower extremity edema. Lungs: Normal respiratory effort. Clear to auscultation bilaterally. No wheezes. No crackles. Abdomen: Soft. Non-tender. Non-distended. No masses or abdominal hernia. Msk: No digital cyanosis. Normal strength and tone in all 4 limbs. Lumbar spine: tenderness to palpation over the lumbar vertebrae (L3L4 region). Skin: Warm and dry, no rashes. Neuro: Alert. No facial droop or slurred speech. Extra-ocular movements intact. Sensation intact to soft touch in all 4 limbs. Strength 5/5 in bilateral lower extremities. Psych: Appropriate mood. Full affect. Oriented to person, place, time, and situation. Plan discussed with: Patient DAMIAN GROVES MD Aug 18, 2025 06:51
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
[2025-08-19] VITALS (7 sets, daily range): BP systolic 123–151; BP diastolic 76–101; PULSE 86–99; RESP 17–19; TEMP 98–98.7; O2SAT 92–99
[2025-08-19 05:16] LABS: Hematocrit 37.6 % (41.0-53.0); Hemoglobin 12.6 g/dL (13.5-17.5); Mean Corpuscular Hemoglobin 27.5 pg (28.0-32.0); Mean Corpuscular Volume 81.9 fL (80.0-100.0); Nucleated Red Blood Cells % 0.1 %
[2025-08-19 05:32] LABS: Albumin 3.8 g/dL (3.2-4.8); Alkaline Phosphatase 103 U/L (46-116); Anion Gap 8 (5-15); BUN/Creatinine Ratio 12.7 (10.0-20.0); Blood Urea Nitrogen 15 mg/dL (9-23); Calcium 9.5 mg/dL (8.7-10.4); Carbon Dioxide 29 mmol/L (20-31); Glucose 90 mg/dL (74-106); Magnesium 2.2 mg/dL (1.6-2.6); Potassium 3.9 mmol/L (3.5-5.1); Sodium 144 mmol/L (136-145); Total Protein 6.9 g/dL (5.7-8.2)
[2025-08-19 05:33] LABS: Alanine Aminotransferase 47 U/L (7-40); Bilirubin, Total 0.4 mg/dL (0.2-1.0); Chloride 107 mmol/L (98-107)
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
--- NOTE | 2025-08-19 09:13 | DVH ---
CHEST RADIOGRAPH INDICATION: Evaluate lung parenchyma TECHNIQUE: Single frontal view of the chest was obtained COMPARISON: XY CHEST PORTABLE on DOS: 08/16/25 FINDINGS: Lines and Tubes: None Lungs: Clear Pleura: No effusion. No pneumothorax. Cardiomediastinal contours: Unremarkable Bones: Unremarkable IMPRESSION: 1. No acute disease.
--- NOTE | 2025-08-19 20:52 | DVHPN2 ---
Consult Progress Note Date Seen: Aug 19, 2025 Subjective Patient reports: Feels better Objective vital signs Vital Sign Date Time Temp Pulse Resp B/P (MAP) Pulse Ox O2 Delivery O2 Flow Rate FiO2 08/19/25 13:00 98.7 91 17 151/101 (118) 97 98.7 08/19/25 08:00 Room Air* 0 21 Total Intake and Output 08/18/25 08/18/25 08/19/25 15:00 23:00 07:00 Intake Total 450 ml 1200 ml 1900 ml Output Total 1800 ml Balance 450 ml 1200 ml 100 ml medications Current Medications Medications Dose Ordered Sig/Porsche Route Start Time Stop Time Status Last Admin Dose Admin Sodium Chloride 1,000 ml @ 120 mls/hr Q8H20M IV 08/15/25 21:45 08/19/25 09:10 120 MLS/HR Acetaminophen/ Hydrocodone Bitart 1 tab Q4HP PRN PO 08/15/25 21:45 08/19/25 09:18 1 TAB Amlodipine Besylate 10 mg DAILY PO 08/16/25 10:00 08/19/25 09:18 10 MG Enoxaparin Sodium 100 mg Q12HR SC 08/15/25 22:00 08/19/25 09:19 100 MG Atorvastatin Calcium 40 mg HS PO 08/15/25 22:00 08/18/25 20:05 40 MG Pantoprazole Sodium 40 mg DAILY@0600 PO 08/16/25 06:00 08/19/25 05:18 40 MG Vancomycin HCl 0 ml @ 0 mls/hr PER PHARMACY IV 08/15/25 22:00 Ergocalciferol 50,000 unit Q7D PO 08/16/25 20:30 08/16/25 21:11 50,000 UNIT Fluconazole 100 ml @ 100 mls/hr 10,,,13 IV 08/17/25 10:00 08/19/25 14:48 100 MLS/HR Cefepime HCl 50 ml @ 12.5 mls/hr Q12H IV 08/17/25 08:30 08/19/25 09:07 12.5 MLS/HR Acetaminophen 650 mg DAILY@1230 PO 08/17/25 12:30 08/19/25 13:45 650 MG Diphenhydramine HCl 25 mg DAILY@1230 IV 08/17/25 12:30 08/19/25 13:44 25 MG Vancomycin HCl 250 ml @ 166.667 mls/hr Q12H IV 08/18/25 02:00 08/19/25 14:51 166.667 MLS/HR Amphotericin B Liposome 600 mg/ Dextrose 150 ml @ 75 mls/hr DAILY@1500 IV 08/19/25 15:00 08/19/25 16:39 75 MLS/HR laboratory and microbiology Laboratory Tests 08/19/25 04:48 Test 08/19/25 04:48 Range/Units Serum Glucose 90 74-106 mg/dL Problem List/Assessment/Plan Problems(with codes): (1) Acute exacerbation of chronic low back pain (2) Disseminated coccidioidomycosis (3) Coccidioidomycosis meningitis (4) Lumbar discitis (5) Intractable low back pain Problem List/Assessment/Plan Assessment/Plan Problems(with codes): (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 (3) Lumbar discitis (4) Acute exacerbation of chronic low back pain Plan/Recommendation ASSESSMENT AND PLAN: ID Problem List: \-- Lumbar L3L4 discitis/osteomyelitis with large anterior/epidural phlegmon/abscess (L2L5) causing spinal canal and foraminal stenosis \-- 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 male, with a past medical history of spinal abscess, coccidioidomycosis (valley fever), impaired mobility, chronic low back pain, lumbar stenosis, GERD, type 2 diabetes mellitus, hypertension, and DVT on Eliquis, who presents with severe low back pain for 10 months, acutely worsened over the last 3 days to 10/10 intensity, localized to the lumbar region without radiation and aggravated by movement. He was admitted previously to [facility] in February 2025 and diagnosed with valley fever, and has been on fluconazole as outpatient. He has a history of multiple incarcerations () and is currently wheelchair bound due to a prior workplace injury. He denies bowel incontinence, saddle paresthesias, pelvic numbness, and extremity weakness. No sick contacts, weight loss, or fevers are reported. On this admission, CT lumbar spine without contrast shows destructive changes centered at the L3L4 endplates with surrounding paravertebral inflammatory changes, highly suspicious for discitis/osteomyelitis. MRI lumbar spine with and without contrast confirms L3L4 discitis and osteomyelitis with abscess and/or phlegmon extending into the anterior epidural space along the posterior margins of the L2L5 vertebrae (greater on the right), possibly also in the posterior epidural space at L3L4. The process measures approximately 9.7 cm longitudinally and results in moderate spinal canal stenosis at L3L4 and moderate to severe spinal canal stenosis at L4, with significant bilateral neuroforaminal stenosis at L2L3, L3L4, and L4L5 and displacement of the aorta and IVC anteriorly. Findings may correspond to lower extremity radicular symptoms in L2, bilateral L3, bilateral L4, and bilateral L5 nerve root distributions. Neurosurgery has been consulted. He has been started empirically on vancomycin, cefepime, and continued on fluconazole. Blood cultures to date are no growth. Prior serologies show cocci complement fixation titer 1:32 in April, decreasing to 1:16 as of 07/11/2025 on therapy. HIV, influenza A/B, and COVID-19 tests are negative. CRP has risen from 22 (June) to 40 (July), raising concern for ongoing or worsening infection. Current cocci antibody testing is pending. 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 TB (Pott disease) remains a consideration due to incarceration history, but clinical suspicion is lower. Given the extent of epidural disease, risk for neurologic compromise (leg weakness, chronic immobility, potential for WELT BEATER involvement), and possible failure of current azole therapy, escalation to amphotericin B is recommended, with consideration of intrathecal amphotericin B at a center with appropriate expertise. Bacterial epidural abscess/osteomyelitis is considered less likely at this time in the setting of known cocci spinal infection and negative cultures to date, but empiric broad-spectrum antibiotics are reasonable pending further data. 08/17: takes fluconazole 400mg at home Plan: \-- Coccidioidomycosis with lumbar discitis/osteomyelitis and epidural phlegmon/abscess (L2L5): \-- High suspicion for disseminated coccidioidomycosis involving the vertebrae and epidural space based on imaging, prior positive cocci titers, and clinical course. \-- Obtain/confirm current coccidioides serologies, including complement fixation titers; follow results and trends closely. \-- CRP improved from 40 -->2 \-- Antifungal therapy: \-- Start amphotericin B systemically in addition to IV fluconazole, given concern for disseminated spinal coccidioidomycosis with large epidural component, progressive pain, and risk of neurologic deterioration. \-- Intrathecal therapy / higher level of care: \-- Consider lumbar puncture for diagnostic evaluation and to facilitate intrathecal amphotericin B administration, if this is within the facilitys capabilities. \-- If intrathecal amphotericin B cannot be provided at this facility, strongly consider transfer to a higher level of care with valley fever expertise (e.g., dedicated valley fever center in [place]) for evaluation and management, including potential intrathecal therapy and coordinated neurosurgical care. -- lumbar puncture studies should include protein, cell count, glucose, bacterial culture, fungal culture, afb culture, mtb pcr, cocci ab cf, administration of intrathecal amphotericin deoxycholate. --> unable to administer amphoterocin intrathecally here therefore would recommend [facility] at this time. \-- Neurosurgical management: \-- Continue close collaboration with Neurosurgery for assessment of spinal stability and timing/need for surgical evacuation of the epidural collection, especially if neurologic status worsens. \-- Epidural abscess/phlegmon at L2L5 with canal stenosis qualifies as significant neurologic disease and may warrant surgical evacuation depending on clinical course. \-- Neurologic monitoring: \-- Monitor frequently for new or worsening leg weakness, sensory changes, bowel/bladder dysfunction, saddle anesthesia, or other signs of cord/nerve root compromise. \-- If patient develops headache, nausea, vomiting, blurry vision, or other focal neurologic symptoms, obtain MRI brain with and without contrast to evaluate for WELT BEATER coccidioidomycosis/brain abscess. \-- Rule out spinal tuberculosis (Pott disease): \-- Risk factor: prolonged history of incarceration (). \-- Patient denies sick contacts, weight loss, and fevers; overall clinical suspicion for TB is low at this time. \-- Order Quantiferon-TB Gold to assess for TB exposure/infection. \-- No isolation precautions are required at this time based on current clinical suspicion; reassess if new concerning symptoms develop or if TB testing returns positive. \-- Broad-spectrum antibacterial coverage / bacterial vertebral osteomyelitis- epidural abscess: \-- Currently on empiric vancomycin and cefepime plus antifungal therapy. \-- Blood cultures to date are no growth. \-- If blood cultures remain negative at 4872 hours, and no new evidence emerges to support bacterial vertebral osteomyelitis/epidural abscess, it would be reasonable to discontinue vancomycin and cefepime, given low current suspicion for bacterial etiology in the setting of a known coccidioidal spinal infection. \-- Monitoring and supportive care while on amphotericin B: \-- Monitor renal function (BUN, creatinine) closely. \-- Monitor electrolytes (especially potassium and magnesium) closely; replace per protocol. \-- Continue pain management as initiated, adjusting as needed for adequate control while avoiding oversedation that could mask evolving neurologic deficits. \-- Chronic comorbidities (DM2, HTN, DVT on Eliquis, GERD, impaired mobility): \-- Continue home medications as appropriate and as compatible with current therapies: \-- Amlodipine continue for hypertension management unless contraindicated. \-- Apixaban (Eliquis) continue for history of DVT if neurosurgical team agrees and there is no immediate plan for invasive spinal procedures; reassess anticoagulation strategy if intervention is scheduled. \-- Atorvastatin continue if no contraindications. \-- Fluconazole see antifungal plan above regarding transition to amphotericin B. \-- Maintain good glycemic control for optimal infection outcomes (specific regimen not provided in transcript). \-- Address mobility and pressure injury prevention given wheelchair dependence and limited mobility (specific plan not detailed in transcript). Isolation Precautions: standard; no airborne or additional isolation indicated at this time based on current low suspicion for TB. Assessment and plan was discussed with the patient as written above Plan is subject to change pending incorporation of new incoming information/diagnostics. Updates may be added as addendum at the bottom (OR TOP) of this note Thank you for interesting consult. ID will continue to follow. Please contact Infectious Disease for any questions or concerns. Damian Groves M.D. [facility] Ph: ? Teams text: [email or web address] Electronically signed by: Damian Groves MD, 08/19/2025 \ Physical Exam: General: NAD Neck: Supple. No masses. HEENT: PERRL. Normal lids and conjunctiva. Moist mucous membranes. Oropharynx without lesions, exudates or excessive erythema. Normal appearance of the external aspects of the nose and ears. Heart: Regular rhythm, normal rate. No murmur. No lower extremity edema. Lungs: Normal respiratory effort. Clear to auscultation bilaterally. No wheezes. No crackles. Abdomen: Soft. Non-tender. Non-distended. No masses or abdominal hernia. Msk: No digital cyanosis. Normal strength and tone in all 4 limbs. Lumbar spine: tenderness to palpation over the lumbar vertebrae (L3L4 region). Skin: Warm and dry, no rashes. Neuro: Alert. No facial droop or slurred speech. Extra-ocular movements intact. Sensation intact to soft touch in all 4 limbs. Strength 5/5 in bilateral lower extremities. Psych: Appropriate mood. Full affect. Oriented to person, place, time, and situation. Plan discussed with: Patient DAMIAN GROVES MD Aug 19, 2025 20:52
[2025-08-20] VITALS (7 sets, daily range): BP systolic 111–146; BP diastolic 67–95; PULSE 88–112; RESP 14–20; TEMP 97.7–98.8; O2SAT 97–100
[2025-08-20 05:01] LABS: Hematocrit 36.2 % (41.0-53.0); Hemoglobin 12.3 g/dL (13.5-17.5); Mean Corpuscular Hemoglobin 27.9 pg (28.0-32.0); Mean Corpuscular Volume 82.0 fL (80.0-100.0); Nucleated Red Blood Cells % 0.1 %
[2025-08-20 05:18] LABS: Albumin 3.8 g/dL (3.2-4.8); Alkaline Phosphatase 108 U/L (46-116); Anion Gap 9 (5-15); BUN/Creatinine Ratio 12.6 (10.0-20.0); Blood Urea Nitrogen 16 mg/dL (9-23); Calcium 9.3 mg/dL (8.7-10.4); Carbon Dioxide 27 mmol/L (20-31); Potassium 3.6 mmol/L (3.5-5.1); Sodium 143 mmol/L (136-145); Total Protein 6.7 g/dL (5.7-8.2)
[2025-08-20 05:19] LABS: Bilirubin, Total 0.4 mg/dL (0.2-1.0)
[2025-08-20 05:26] LABS: Alanine Aminotransferase 50 U/L (7-40); Chloride 107 mmol/L (98-107); Glucose 120 mg/dL (74-106)
--- NOTE | 2025-08-20 15:52 | DVHPNRES ---
Progress Note Date Seen: Aug 20, 2025 Resident Creating Document: KAROLYN CALLAHAN RESIDENT Medical Necessity Reason Pt with a Central, PICC or Fol: No Subjective Review of Systems Patient was seen today at bedside Labs and chart reviewed -pending bed availability at [facility] -neurosurgeon from [facility] requesting for CT-guided biopsy to determine if patient is awake ceftriaxone Spoke to family at bedside. Objective vital signs Vital Sign Date Time Temp Pulse Resp B/P (MAP) Pulse Ox O2 Delivery O2 Flow Rate FiO2 08/20/25 12:46 98.6 96 20 133/77 (95) 98 98.6 08/20/25 08:00 Room Air* 0 21 Total Intake and Output 08/19/25 08/19/25 08/20/25 15:00 23:00 07:00 Intake Total 350 ml 1540 ml 1460 ml Output Total 2050 ml Balance 350 ml 1540 ml -590 ml medications Current Medications Medications Dose Ordered Sig/Porsche Route Start Time Stop Time Status Last Admin Dose Admin Sodium Chloride 1,000 ml @ 120 mls/hr Q8H20M IV 08/15/25 21:45 08/20/25 09:32 120 MLS/HR Acetaminophen/ Hydrocodone Bitart 1 tab Q4HP PRN PO 08/15/25 21:45 08/20/25 09:33 1 TAB Amlodipine Besylate 10 mg DAILY PO 08/16/25 10:00 08/20/25 09:33 10 MG Enoxaparin Sodium 100 mg Q12HR SC 08/15/25 22:00 08/20/25 09:32 100 MG Atorvastatin Calcium 40 mg HS PO 08/15/25 22:00 08/19/25 21:13 40 MG Pantoprazole Sodium 40 mg DAILY@0600 PO 08/16/25 06:00 08/20/25 05:22 40 MG Vancomycin HCl 0 ml @ 0 mls/hr PER PHARMACY IV 08/15/25 22:00 Ergocalciferol 50,000 unit Q7D PO 08/16/25 20:30 08/16/25 21:11 50,000 UNIT Fluconazole 100 ml @ 100 mls/hr 10,11,12,13 IV 08/17/25 10:00 08/20/25 12:22 100 MLS/HR Cefepime HCl 50 ml @ 12.5 mls/hr Q12H IV 08/17/25 08:30 08/20/25 08:04 12.5 MLS/HR Vancomycin HCl 250 ml @ 166.667 mls/hr Q12H IV 08/18/25 02:00 08/20/25 13:32 166.667 MLS/HR Amphotericin B Liposome 600 mg/ Dextrose 150 ml @ 75 mls/hr DAILY@1500 IV 08/19/25 15:00 08/20/25 14:35 75 MLS/HR Acetaminophen 650 mg DAILY@1430 PO 08/21/25 14:30 Diphenhydramine HCl 25 mg DAILY@1430 IV 08/21/25 14:30 Examination General examination- awake, alert, oriented HEENT- PEERLA, no acute nasal discharge Cardiovascular- S1-S2 audible, rate and rhythm regular, no murmur Respiratory- CTAB, no wheeze or rhonchi Gastrointestinal-nontender, bowel sound+. Nondistended Musculoskeletal-no acute joint swelling or tenderness or redness Lower extremity- no leg edema Neurological- cranial nerves intact, no acute dysarthria or dysphagia Psychiatry- denies depression or SI or HI Skin- no acute rash or purpura laboratory and microbiology Laboratory Tests 08/20/25 04:45 Test 08/20/25 04:45 Range/Units Serum Glucose 120 H 74-106 mg/dL Microbiology Date/Time Source Procedure Growth Status 08/16/25 16:30 Nose MRSA Screen - Final Complete 08/15/25 19:09 Blood Blood Culture - Preliminary NO GROWTH AFTER 72 HOURS OF INCUBATION. Resulted 08/15/25 18:25 Voided Urine Urine Culture - Final Complete Problem List/Assessment/Plan Problem List/Assessment/Plan Problem List/Assessment/Plan # Pott's disease, likely # L3-L4 discitis/osteomyelitis # Moderate spinal canal stenosis at L3L4 and moderate to severe stenosis at L4L5 due to infectious/inflammatory process # Lumbar vertebral discitis # Severe lumbar radiculopathy # H/o Valley fever (coccidioidomycosis) in lumbar region Lumbar Spine MRI: No fracture of the lumbar spine. L3-L4 discitis and osteomyelitis, with abscess and/or phlegmon extending into the anterior epidural space along the posterior margins of the L2-L5 vertebral bodies, greater on the right, and possibly also in the posterior epidural space at the L3-L4 level. This process measures 9.7 cm longitudinal and causes moderate spinal canal stenosis at L3-L4 and moderate to severe spinal canal stenosis at L4- LAdditionally, phlegmon extends along the anterior margins of the L2-L5 vertebral bodies and displaces the aorta and IVC anteriorly. Recommend spinal surgery consultation if not already obtained. Significant neural foraminal stenosis on the right at L2-L3, bilaterally at L3-L4, and bilaterally at L4-L5; and partial effacement of the lateral recesses at the L3-L4 and L4-L5 levels. These findings may correspond to lower extremity radicular symptoms in the right L2, bilateral L3, bilateral L4, and bilateral L5 nerve root distributions. Lumbar Spine CT: Findings highly suspicious for L3-L4 discitis/osteomyelitis. Airborne isolation -Echo 2D LVEF 65%, -blood culture no growth -urine culture no growth -TB gold test negative, -pending coccidiodes -flu and COVID negative -HIV negative Infectious disease consult: Start systemic amphotericin B + continue IV fluconazole. Maintain empiric vancomycin/cefepime until cultures negative; discontinue if bacterial infection unlikely. Consider lumbar puncture for CSF analysis and possible intrathecal amphotericin B. If intrathecal therapy unavailable, transfer to [facility] center for advanced care and neurosurgical evaluation. -pending bed availability at [facility] -neurosurgeon from [facility] requesting for CT-guided biopsy to determine if patient is awake ceftriaxone Interventional Radiology consulted for lumbar puncture. Dr. Pascual reviewed chart and imaging and determined: Intrathecal medication cannot be administered at this hospital. Lumbar puncture not indicated at this time. Recommended surgical consult or CT-guided biopsy as alternatives. IR consult in place for lumbar puncture, who recommended not to do this procedure this center. -patient on cefepime, vancomycin, amphotericin B and fluconazole. - # Cardiomegaly # Congestive heart failure Chest X-ray: Cardiomegaly with CHF. -Echo 2D LVEF 65%, # Essential hypertension Amlodipine Monitor blood pressure # History of DVT( home medication Eliquis) Lovenox 100 MG SC q12hr # Type 2 diabetes mellitus # Mixed dyslipidemia Atorvastatin 40 Mg PO hs Carbohydrate consistent diet # Morbid obesity, BMI 41.4 Gait instability -counseled the patient on healthy lifestyle modifications Diet: Carbohydrate consistent diet PUD prophylaxis: Protonix 40mg DVT prophylaxis: Lovenox 40mg Goals of care: Full code Plan discussed with patient Plan discussed with Dr. Ramey Plan discussed with: Patient, Other (RN) Plan discussed with: Patient, Spouse, Other (RN) Visit Coding STANDARD RES Billing Provider: JACINTO RAMEY MD Date of Service if different f: Aug 20, 2025 Common Visit Codes: 88701-[id number] INP/OBS CARE(HIGH) KAROLYN CALLAHAN RESIDENT Aug 20, 2025 15:51
[2025-08-21] VITALS (8 sets, daily range): BP systolic 114–147; BP diastolic 62–90; PULSE 83–109; RESP 16–20; TEMP 98.2–100.7; O2SAT 95–99
[2025-08-21 07:14] LABS: Hematocrit 37.8 % (41.0-53.0); Hemoglobin 12.7 g/dL (13.5-17.5); Mean Corpuscular Hemoglobin 27.6 pg (28.0-32.0); Mean Corpuscular Volume 81.8 fL (80.0-100.0); Nucleated Red Blood Cells % 0.0 %
[2025-08-21] MEDS: diphenhydrAMINE HCL 50 MG/1 ML VL IV SCH (14:38)
[2025-08-21] MEDS: ACETAMINOPHEN 325 MG TAB PO SCH (14:38)
--- NOTE | 2025-08-21 15:02 | DVHPNRES ---
Progress Note Date Seen: Aug 21, 2025 Resident Creating Document: NAM ZHENG RESIDENT Medical Necessity Reason Pt with a Central, PICC or Fol: No Subjective Review of Systems Patient was seen at bedside today. Patient reports he has continued lower back pain which is 10/10 in intensity, relieved by morphine. He is unable to turn from 1 side to the other. Pending bed availability at [facility]. Radiology reported that CT-guided biopsy is not done at this facility. Unclaimed Property Officer are trying to find placement for the patient. Objective vital signs Vital Sign Date Time Temp Pulse Resp B/P (MAP) Pulse Ox O2 Delivery O2 Flow Rate FiO2 08/21/25 13:29 100.4 109 20 135/73 (93) 98 100.4 08/21/25 08:10 Room Air* 0 21 Total Intake and Output 08/20/25 08/20/25 08/21/25 15:00 23:00 07:00 Intake Total 350 ml 1600 ml 730 ml Output Total 3150 ml Balance 350 ml 1600 ml -2420 ml medications Current Medications Medications Dose Ordered Sig/Porsche Route Start Time Stop Time Status Last Admin Dose Admin Acetaminophen/ Hydrocodone Bitart 1 tab Q4HP PRN PO 08/15/25 21:45 08/21/25 09:44 1 TAB Amlodipine Besylate 10 mg DAILY PO 08/16/25 10:00 08/21/25 09:34 10 MG Enoxaparin Sodium 100 mg Q12HR SC 08/15/25 22:00 08/21/25 09:36 100 MG Atorvastatin Calcium 40 mg HS PO 08/15/25 22:00 08/20/25 21:14 40 MG Pantoprazole Sodium 40 mg DAILY@0600 PO 08/16/25 06:00 08/20/25 05:22 40 MG Vancomycin HCl 0 ml @ 0 mls/hr PER PHARMACY IV 08/15/25 22:00 Ergocalciferol 50,000 unit Q7D PO 08/16/25 20:30 08/16/25 21:11 50,000 UNIT Fluconazole 100 ml @ 100 mls/hr 10,11,12,13 IV 08/17/25 10:00 08/21/25 13:36 100 MLS/HR Amphotericin B Liposome 600 mg/ Dextrose 150 ml @ 75 mls/hr DAILY@1500 IV 08/19/25 15:00 08/20/25 14:35 75 MLS/HR Acetaminophen 650 mg DAILY@1430 PO 08/21/25 14:30 08/21/25 14:38 650 MG Diphenhydramine HCl 25 mg DAILY@1430 IV 08/21/25 14:30 08/21/25 14:38 25 MG Cefepime HCl 50 ml @ 12.5 mls/hr Q8HR IV 08/21/25 14:00 Vancomycin HCl 350 ml @ 200 mls/hr Q12H IV 08/21/25 20:00 Examination Pt is lying on bed General Appearance: Alert, Oriented X3, Cooperative, Not in acute distress HEENT: Atraumatic, Mucous membranes moist/pink Respiratory: Clear to auscultation, Normal air movement, No added sounds Cardiovascular: Regular rate, Normal S1, Normal S2, No murmurs Abdominal: Active bowel sounds, Soft, no distention, no tenderness Extremities: No edema, Normal pulses, No tenderness/swelling Skin: No Significant rash, except past surgical scars Neuro: Normal speech, Cranial nerves intact, no acute dysarthria or dysphagia Psych/Mental Status: Mental status NL, Mood NL denies depression Nurse was there as swimming pool maintenance during examination laboratory and microbiology Laboratory Tests 08/21/25 06:20 08/20/25 04:45 Test 08/20/25 04:45 Range/Units Serum Glucose 120 H 74-106 mg/dL Microbiology Date/Time Source Procedure Growth Status 08/16/25 16:30 Nose MRSA Screen - Final Complete 08/15/25 19:09 Blood Blood Culture - Final NO GROWTH AFTER 5 DAYS OF INCUBATION. 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 L3-L4 discitis and osteomyelitis, with abscess and/or phlegmon extending into the anterior epidural space along the posterior margins of the L2-L5 vertebral bodies, greater on the right, and possibly also in the posterior epidural space at the L3-L4 level. This process measures 9.7 cm longitudinal and causes moderate spinal canal stenosis at L3-L4 and moderate to severe spinal canal stenosis at L4- LAdditionally, phlegmon extends along the anterior margins of the L2-L5 vertebral bodies and displaces the aorta and IVC anteriorly. Recommend spinal surgery consultation if not already obtained. Significant neural foraminal stenosis on the right at L2-L3, bilaterally at L3-L4, and bilaterally at L4-L5; and partial effacement of the lateral recesses at the L3-L4 and L4-L5 levels. These findings may correspond to lower extremity radicular symptoms in the right L2, bilateral L3, bilateral L4, and bilateral L5 nerve root distributions. Lumbar Spine CT: Findings highly suspicious for L3-L4 discitis/osteomyelitis. Airborne isolation -Echo 2D LVEF 65%, -blood culture no growth -urine culture no growth -TB gold test negative, -pending coccidiodes -flu and COVID negative -HIV negative Infectious disease consult: Start systemic amphotericin B + continue IV fluconazole. Maintain empiric vancomycin/cefepime until cultures negative; discontinue if bacterial infection unlikely. Consider lumbar puncture for CSF analysis and possible intrathecal amphotericin B. If intrathecal therapy unavailable, transfer to [facility] for advanced care and neurosurgical evaluation. -pending bed availability at [facility] -neurosurgeon from [facility] requesting for CT-guided biopsy to determine if patient is awake ceftriaxone Interventional Radiology consulted for lumbar puncture. Dr. Pascual reviewed chart and imaging and determined: Intrathecal medication cannot be administered at this hospital. Lumbar puncture not indicated at this time. Recommended surgical consult or CT-guided biopsy as alternatives. IR consult in place for lumbar puncture, who recommended not to do this procedure this center. -patient on cefepime, vancomycin, amphotericin B and fluconazole. -Interventional Radiology consulted for CT-guided biopsy as requested by [facility]. CT-guided biopsy is not done at this facility as per Radiology. Awaiting social work associate for placement at [facility] # Cardiomegaly # Congestive heart failure Chest X-ray: Cardiomegaly with CHF. -Echo 2D LVEF 65%, # Essential hypertension Amlodipine Monitor blood pressure # History of DVT( home medication Eliquis) Lovenox 100 MG SC q12hr # Type 2 diabetes mellitus # Mixed dyslipidemia Atorvastatin 40 Mg PO hs Carbohydrate consistent diet # Morbid obesity, BMI 41.4 Gait instability -counseled the patient on healthy lifestyle modifications Diet: Carbohydrate consistent diet PUD prophylaxis: Protonix 40mg DVT prophylaxis: Lovenox 40mg Goals of care discussed with the patient for more than 27 minutes: Full code status Case discussed with Dr. Ramey, patient and nurse. Plan discussed with: Patient Visit Coding STANDARD RES Billing Provider: JACINTO RAMEY MD Date of Service if different f: Aug 21, 2025 Common Visit Codes: 38068-[id number] INP/OBS CARE(HIGH) NAM ZHENG RESIDENT Aug 21, 2025 15:02 JACINTO RAMEY MD Aug 22, 2025 18:46
[2025-08-21] MEDS: CEFEPIME 2GM/50ML NS 50 ML IV SCH (18:02)
[2025-08-21] MEDS: VANCOMYCIN 1.75GM/350ML IV SCH (20:21)
--- NOTE | 2025-08-21 22:52 | DVHPN2 ---
Consult Progress Note Objective vital signs Vital Sign Date Time Temp Pulse Resp B/P (MAP) Pulse Ox O2 Delivery O2 Flow Rate FiO2 08/21/25 20:45 100.7 83 18 147/86 (106) 97 100.7 08/21/25 08:10 Room Air* 0 21 Total Intake and Output 08/20/25 08/20/25 08/21/25 15:00 23:00 07:00 Intake Total 350 ml 1600 ml 730 ml Output Total 3150 ml Balance 350 ml 1600 ml -2420 ml medications Current Medications Medications Dose Ordered Sig/Porsche Route Start Time Stop Time Status Last Admin Dose Admin Acetaminophen/ Hydrocodone Bitart 1 tab Q4HP PRN PO 08/15/25 21:45 08/21/25 20:22 1 TAB Amlodipine Besylate 10 mg DAILY PO 08/16/25 10:00 08/21/25 09:34 10 MG Enoxaparin Sodium 100 mg Q12HR SC 08/15/25 22:00 08/21/25 22:07 100 MG Atorvastatin Calcium 40 mg HS PO 08/15/25 22:00 08/21/25 22:05 40 MG Pantoprazole Sodium 40 mg DAILY@0600 PO 08/16/25 06:00 08/20/25 05:22 40 MG Vancomycin HCl 0 ml @ 0 mls/hr PER PHARMACY IV 08/15/25 22:00 Ergocalciferol 50,000 unit Q7D PO 08/16/25 20:30 08/16/25 21:11 50,000 UNIT Fluconazole 100 ml @ 100 mls/hr 10,11,12,13 IV 08/17/25 10:00 08/21/25 13:36 100 MLS/HR Amphotericin B Liposome 600 mg/ Dextrose 150 ml @ 75 mls/hr DAILY@1500 IV 08/19/25 15:00 08/21/25 15:28 75 MLS/HR Acetaminophen 650 mg DAILY@1430 PO 08/21/25 14:30 08/21/25 14:38 650 MG Diphenhydramine HCl 25 mg DAILY@1430 IV 08/21/25 14:30 08/21/25 14:38 25 MG Cefepime HCl 50 ml @ 12.5 mls/hr Q8HR IV 08/21/25 14:00 08/21/25 22:06 12.5 MLS/HR Vancomycin HCl 350 ml @ 200 mls/hr Q12H IV 08/21/25 20:00 08/21/25 20:21 200 MLS/HR laboratory and microbiology Laboratory Tests 08/21/25 06:20 08/20/25 04:45 Test 08/20/25 04:45 Range/Units Serum Glucose 120 H 74-106 mg/dL Problem List/Assessment/Plan Problem List/Assessment/Plan Assessment/Plan Problems(with codes): (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 (3) Lumbar discitis (4) Acute exacerbation of chronic low back pain Plan/Recommendation ASSESSMENT AND PLAN: ID Problem List: \-- Lumbar L3L4 discitis/osteomyelitis with large anterior/epidural phlegmon/abscess (L2L5) causing spinal canal and foraminal stenosis \-- 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 male, with a past medical history of spinal abscess, coccidioidomycosis (valley fever), impaired mobility, chronic low back pain, lumbar stenosis, GERD, type 2 diabetes mellitus, hypertension, and DVT on Eliquis, who presents with severe low back pain for 10 months, acutely worsened over the last 3 days to 10/10 intensity, localized to the lumbar region without radiation and aggravated by movement. He was admitted previously to [facility] in February 2025 and diagnosed with valley fever, and has been on fluconazole as outpatient. He has a history of multiple incarcerations () and is currently wheelchair bound due to a prior workplace injury. He denies bowel incontinence, saddle paresthesias, pelvic numbness, and extremity weakness. No sick contacts, weight loss, or fevers are reported. On this admission, CT lumbar spine without contrast shows destructive changes centered at the L3L4 endplates with surrounding paravertebral inflammatory changes, highly suspicious for discitis/osteomyelitis. MRI lumbar spine with and without contrast confirms L3L4 discitis and osteomyelitis with abscess and/or phlegmon extending into the anterior epidural space along the posterior margins of the L2L5 vertebrae (greater on the right), possibly also in the posterior epidural space at L3L4. The process measures approximately 9.7 cm longitudinally and results in moderate spinal canal stenosis at L3L4 and moderate to severe spinal canal stenosis at L4, with significant bilateral neuroforaminal stenosis at L2L3, L3L4, and L4L5 and displacement of the aorta and IVC anteriorly. Findings may correspond to lower extremity radicular symptoms in L2, bilateral L3, bilateral L4, and bilateral L5 nerve root distributions. Neurosurgery has been consulted. He has been started empirically on vancomycin, cefepime, and continued on fluconazole. Blood cultures to date are no growth. Prior serologies show cocci complement fixation titer 1:32 in April, decreasing to 1:16 as of 07/11/2025 on therapy. HIV, influenza A/B, and COVID-19 tests are negative. CRP has risen from 22 (June) to 40 (July), raising concern for ongoing or worsening infection. Current cocci antibody testing is pending. 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 TB (Pott disease) remains a consideration due to incarceration history, but clinical suspicion is lower. Given the extent of epidural disease, risk for neurologic compromise (leg weakness, chronic immobility, potential for GAS REVERSER involvement), and possible failure of current azole therapy, escalation to amphotericin B is recommended, with consideration of intrathecal amphotericin B at a center with appropriate expertise. Bacterial epidural abscess/osteomyelitis is considered less likely at this time in the setting of known cocci spinal infection and negative cultures to date, but empiric broad-spectrum antibiotics are reasonable pending further data. 08/17: takes fluconazole 400mg at home Plan: \-- Coccidioidomycosis with lumbar discitis/osteomyelitis and epidural phlegmon/abscess (L2L5): \-- High suspicion for disseminated coccidioidomycosis involving the vertebrae and epidural space based on imaging, prior positive cocci titers, and clinical course. \-- Obtain/confirm current coccidioides serologies, including complement fixation titers; follow results and trends closely. \-- CRP improved from 40 -->2 \-- Antifungal therapy: \-- Start amphotericin B systemically in addition to IV fluconazole, given concern for disseminated spinal coccidioidomycosis with large epidural component, progressive pain, and risk of neurologic deterioration. \-- Intrathecal therapy / higher level of care: \-- Consider lumbar puncture for diagnostic evaluation and to facilitate intrathecal amphotericin B administration, if this is within the facilitys capabilities. \-- If intrathecal amphotericin B cannot be provided at this facility, strongly consider transfer to a higher level of care with valley fever expertise (e.g., dedicated valley fever center in [place]) for evaluation and management, including potential intrathecal therapy and coordinated neurosurgical care. -- lumbar puncture studies should include protein, cell count, glucose, bacterial culture, fungal culture, afb culture, mtb pcr, cocci ab cf, administration of intrathecal amphotericin deoxycholate. --> unable to administer amphoterocin intrathecally here therefore would recommend HLOC at this time. \-- Neurosurgical management: \-- Continue close collaboration with Neurosurgery for assessment of spinal stability and timing/need for surgical evacuation of the epidural collection, especially if neurologic status worsens. \-- Epidural abscess/phlegmon at L2L5 with canal stenosis qualifies as significant neurologic disease and may warrant surgical evacuation depending on clinical course. \-- Neurologic monitoring: \-- Monitor frequently for new or worsening leg weakness, sensory changes, bowel/bladder dysfunction, saddle anesthesia, or other signs of cord/nerve root compromise. \-- If patient develops headache, nausea, vomiting, blurry vision, or other focal neurologic symptoms, obtain MRI brain with and without contrast to evaluate for GAS REVERSER coccidioidomycosis/brain abscess. \-- Rule out spinal tuberculosis (Pott disease): \-- Risk factor: prolonged history of incarceration (). \-- Patient denies sick contacts, weight loss, and fevers; overall clinical suspicion for TB is low at this time. \-- Order Quantiferon-TB Gold to assess for TB exposure/infection. \-- No isolation precautions are required at this time based on current clinical suspicion; reassess if new concerning symptoms develop or if TB testing returns positive. \-- Broad-spectrum antibacterial coverage / bacterial vertebral osteomyelitis- epidural abscess: \-- Currently on empiric vancomycin and cefepime plus antifungal therapy. \-- Blood cultures to date are no growth. \-- If blood cultures remain negative at 4872 hours, and no new evidence emerges to support bacterial vertebral osteomyelitis/epidural abscess, it would be reasonable to discontinue vancomycin and cefepime, given low current suspicion for bacterial etiology in the setting of a known coccidioidal spinal infection. \-- Monitoring and supportive care while on amphotericin B: \-- Monitor renal function (BUN, creatinine) closely. \-- Monitor electrolytes (especially potassium and magnesium) closely; replace per protocol. \-- Continue pain management as initiated, adjusting as needed for adequate control while avoiding oversedation that could mask evolving neurologic deficits. \-- Chronic comorbidities (DM2, HTN, DVT on Eliquis, GERD, impaired mobility): \-- Continue home medications as appropriate and as compatible with current therapies: \-- Amlodipine continue for hypertension management unless contraindicated. \-- Apixaban (Eliquis) continue for history of DVT if neurosurgical team agrees and there is no immediate plan for invasive spinal procedures; reassess anticoagulation strategy if intervention is scheduled. \-- Atorvastatin continue if no contraindications. \-- Fluconazole see antifungal plan above regarding transition to amphotericin B. \-- Maintain good glycemic control for optimal infection outcomes (specific regimen not provided in transcript). \-- Address mobility and pressure injury prevention given wheelchair dependence and limited mobility (specific plan not detailed in transcript). Isolation Precautions: standard; no airborne or additional isolation indicated at this time based on current low suspicion for TB. Assessment and plan was discussed with the patient as written above Plan is subject to change pending incorporation of new incoming information/diagnostics. Updates may be added as addendum at the bottom (OR TOP) of this note Thank you for interesting consult. ID will continue to follow. Please contact Infectious Disease for any questions or concerns. Damian Groves M.D. [facility] Ph: ? Teams text: Electronically signed by: Damian Groves MD, 08/19/2025 \ Physical Exam: General: NAD Neck: Supple. No masses. HEENT: PERRL. Normal lids and conjunctiva. Moist mucous membranes. Oropharynx without lesions, exudates or excessive erythema. Normal appearance of the external aspects of the nose and ears. Heart: Regular rhythm, normal rate. No murmur. No lower extremity edema. Lungs: Normal respiratory effort. Clear to auscultation bilaterally. No wheezes. No crackles. Abdomen: Soft. Non-tender. Non-distended. No masses or abdominal hernia. Msk: No digital cyanosis. Normal strength and tone in all 4 limbs. Lumbar spine: tenderness to palpation over the lumbar vertebrae (L3L4 region). Skin: Warm and dry, no rashes. Neuro: Alert. No facial droop or slurred speech. Extra-ocular movements intact. Sensation intact to soft touch in all 4 limbs. Strength 5/5 in bilateral lower extremities. Psych: Appropriate mood. Full affect. Oriented to person, place, time, and situation. DAMIAN GROVES MD Aug 21, 2025 22:52
[2025-08-22] VITALS (8 sets, daily range): BP systolic 110–142; BP diastolic 60–89; PULSE 94–103; RESP 17–20; TEMP 98.4–99.7; O2SAT 95–99
[2025-08-22 05:04] LABS: Hematocrit 36.8 % (41.0-53.0); Hemoglobin 12.5 g/dL (13.5-17.5); Mean Corpuscular Hemoglobin 27.6 pg (28.0-32.0); Mean Corpuscular Volume 81.2 fL (80.0-100.0); Nucleated Red Blood Cells % 0.0 %
[2025-08-22 05:51] LABS: Anion Gap 10 (5-15); Carbon Dioxide 23 mmol/L (20-31); Sodium 143 mmol/L (136-145)
[2025-08-22 05:52] LABS: Calcium 9.3 mg/dL (8.7-10.4)
[2025-08-22 05:57] LABS: Glucose 86 mg/dL (74-106)
[2025-08-22 05:58] LABS: Chloride 110 mmol/L (98-107); Potassium 3.1 mmol/L (3.5-5.1)
[2025-08-22 06:10] LABS: BUN/Creatinine Ratio 13.7 (10.0-20.0); Blood Urea Nitrogen 13 mg/dL (9-23)
[2025-08-22] MEDS: POTASSIUM CHL 20 Meq TABLET PO ONE (06:38)
[2025-08-22] MEDS: POTASSIUM CHL 20MEQ/100ML 100 ML IV SCH (09:09)
--- NOTE | 2025-08-22 15:10 | MEDREC ---
[facility] ASP Intervention Section I [facility] ASP Intervention: Deescalate AB based on CS (FINAL BLOOD CULTURE WITH NO GROWTH - FINAL URINE CULTURE WITH NO GROWTH - PLEASE CONSIDER D/C ANTIBIOTICS IN ABSENCE OF BACTERIAL INFECTION) PETEY DAVILA PHARMACIST Aug 22, 2025 15:10
--- NOTE | 2025-08-22 16:35 | DVHPNRES ---
Progress Note Date Seen: Aug 22, 2025 Resident Creating Document: NAM ZHENG RESIDENT Medical Necessity Reason Pt with a Central, PICC or Fol: No Subjective Review of Systems Patient was seen and examined by me at the bedside today. Patient still reports of continued lower back pain, he is able to move his legs but unable to turn [id number] still. representative phlebotomy services informed [facility] still has no availability of beds and [facility] declined the patient. We will continue ongoing management. Objective vital signs Vital Sign Date Time Temp Pulse Resp B/P (MAP) Pulse Ox O2 Delivery O2 Flow Rate FiO2 08/22/25 13:00 98.7 98 20 129/89 (102) 99 98.7 08/22/25 08:00 Room Air* 0 21 Total Intake and Output 08/21/25 08/21/25 08/22/25 15:00 23:00 07:00 Intake Total 1207.5 ml 350 ml 1050 ml Output Total 1400 ml 1100 ml Balance 1207.5 ml -1050 ml -50 ml medications Current Medications Medications Dose Ordered Sig/Porsche Route Start Time Stop Time Status Last Admin Dose Admin Acetaminophen/ Hydrocodone Bitart 1 tab Q4HP PRN PO 08/15/25 21:45 08/22/25 05:05 1 TAB Amlodipine Besylate 10 mg DAILY PO 08/16/25 10:00 08/22/25 09:08 10 MG Enoxaparin Sodium 100 mg Q12HR SC 08/15/25 22:00 08/22/25 09:09 100 MG Atorvastatin Calcium 40 mg HS PO 08/15/25 22:00 08/21/25 22:05 40 MG Pantoprazole Sodium 40 mg DAILY@0600 PO 08/16/25 06:00 08/20/25 05:22 40 MG Vancomycin HCl 0 ml @ 0 mls/hr PER PHARMACY IV 08/15/25 22:00 Ergocalciferol 50,000 unit Q7D PO 08/16/25 20:30 08/16/25 21:11 50,000 UNIT Fluconazole 100 ml @ 100 mls/hr 10,11,12,13 IV 08/17/25 10:00 08/22/25 16:01 100 MLS/HR Amphotericin B Liposome 600 mg/ Dextrose 150 ml @ 75 mls/hr DAILY@1500 IV 08/19/25 15:00 08/21/25 15:28 75 MLS/HR Acetaminophen 650 mg DAILY@1430 PO 08/21/25 14:30 08/21/25 14:38 650 MG Diphenhydramine HCl 25 mg DAILY@1430 IV 08/21/25 14:30 08/21/25 14:38 25 MG Cefepime HCl 50 ml @ 12.5 mls/hr Q8HR IV 08/21/25 14:00 08/22/25 14:43 12.5 MLS/HR Vancomycin HCl 350 ml @ 200 mls/hr Q12H IV 08/21/25 20:00 08/22/25 09:17 200 MLS/HR Examination Pt is lying on bed General Appearance: Alert, Oriented X3, Cooperative, in acute distress HEENT: Atraumatic, Mucous membranes moist/pink Respiratory: Clear to auscultation, Normal air movement, No added sounds Cardiovascular: Regular rate, Normal S1, Normal S2, No murmurs Abdominal: Active bowel sounds, Soft, no distention, no tenderness Extremities: No edema, Normal pulses, No tenderness/swelling Skin: No Significant rash, except past surgical scars Neuro: Normal speech, Cranial nerves intact, no acute dysarthria or dysphagia Psych/Mental Status: Mental status NL, Mood NL denies depression Nurse was there as superintendent terminal during examination laboratory and microbiology Laboratory Tests 08/22/25 04:36 Test 08/22/25 04:36 Range/Units Serum Glucose 86 74-106 mg/dL Microbiology Date/Time Source Procedure Growth Status 08/16/25 16:30 Nose MRSA Screen - Final Complete 08/15/25 19:09 Blood Blood Culture - Final NO GROWTH AFTER 5 DAYS OF INCUBATION. 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 L3-L4 discitis and osteomyelitis, with abscess and/or phlegmon extending into the anterior epidural space along the posterior margins of the L2-L5 vertebral bodies, greater on the right, and possibly also in the posterior epidural space at the L3-L4 level. This process measures 9.7 cm longitudinal and causes moderate spinal canal stenosis at L3-L4 and moderate to severe spinal canal stenosis at L4- LAdditionally, phlegmon extends along the anterior margins of the L2-L5 vertebral bodies and displaces the aorta and IVC anteriorly. Recommend spinal surgery consultation if not already obtained. Significant neural foraminal stenosis on the right at L2-L3, bilaterally at L3-L4, and bilaterally at L4-L5; and partial effacement of the lateral recesses at the L3-L4 and L4-L5 levels. These findings may correspond to lower extremity radicular symptoms in the right L2, bilateral L3, bilateral L4, and bilateral L5 nerve root distributions. Lumbar Spine CT: Findings highly suspicious for L3-L4 discitis/osteomyelitis. Airborne isolation -Echo 2D LVEF 65%, -blood culture no growth -urine culture no growth -TB gold test negative, -pending coccidiodes -flu and COVID negative -HIV negative Infectious disease consult: Start systemic amphotericin B + continue IV fluconazole. Maintain empiric vancomycin/cefepime until cultures negative; discontinue if bacterial infection unlikely. Consider lumbar puncture for CSF analysis and possible intrathecal amphotericin B. If intrathecal therapy unavailable, transfer to [facility] for advanced care and neurosurgical evaluation. -pending bed availability at [facility] -neurosurgeon from [facility] requesting for CT-guided biopsy to determine if patient is awake ceftriaxone -Interventional Radiology consulted for lumbar puncture. Dr. Pascual reviewed chart and imaging and determined: Intrathecal medication cannot be administered at this hospital. Lumbar puncture not indicated at this time. Recommended surgical consult or CT-guided biopsy as alternatives. -patient on cefepime, vancomycin, amphotericin B and fluconazole. -Interventional Radiology consulted for CT-guided biopsy as requested by [place] [facility]. CT-guided biopsy is not done at this facility as per Radiology. Awaiting social work administrator to find another higher level of care as [facility] declined the patient. # Cardiomegaly # Congestive heart failure Chest X-ray: Cardiomegaly with CHF. -Echo 2D LVEF 65%, # Essential hypertension -Amlodipine -Monitor blood pressure # History of DVT( home medication Eliquis) -Lovenox 100 MG SC q12hr # Type 2 diabetes mellitus # Mixed dyslipidemia -Atorvastatin 40 Mg PO hs -Carbohydrate consistent diet # Morbid obesity, BMI 41.4 -Gait instability -counseled the patient on healthy lifestyle modifications Diet: Carbohydrate consistent diet PUD prophylaxis: Protonix 40mg DVT prophylaxis: Lovenox 40mg Goals of care discussed with the patient for more than 27 minutes: Full code status Case discussed with Dr. Ramey, patient and nurse. Plan discussed with: Patient Visit Coding STANDARD RES Billing Provider: JACINTO RAMEY MD Date of Service if different f: Aug 22, 2025 Common Visit Codes: [id number] INP/OBS CARE(HIGH) NAM ZHENG RESIDENT Aug 22, 2025 16:35 JACINTO RAMEY MD Aug 22, 2025 18:39
[2025-08-23 01:00] VITALS: BP 128/74; PULSE 95; RESP 19; TEMP 98.1; O2SAT 96
[2025-08-23 05:00] VITALS: BP 142/88; PULSE 89; RESP 19; TEMP 98; O2SAT 96
[2025-08-23 08:00] VITALS: RESP 18
[2025-08-23 08:26] LABS: Hematocrit 37.0 % (41.0-53.0); Hemoglobin 12.6 g/dL (13.5-17.5); Mean Corpuscular Hemoglobin 27.5 pg (28.0-32.0); Mean Corpuscular Volume 80.8 fL (80.0-100.0); Nucleated Red Blood Cells % 0.1 %
[2025-08-23 08:36] LABS: Sodium 144 mmol/L (136-145)
[2025-08-23 08:37] LABS: Anion Gap 12 (5-15); Calcium 9.6 mg/dL (8.7-10.4); Carbon Dioxide 21 mmol/L (20-31); Chloride 111 mmol/L (98-107); Potassium 3.3 mmol/L (3.5-5.1)
[2025-08-23 08:42] LABS: BUN/Creatinine Ratio 17.0 (10.0-20.0); Blood Urea Nitrogen 18 mg/dL (9-23); Glucose 96 mg/dL (74-106)
[2025-08-23 09:00] VITALS: BP 110/65; PULSE 90; RESP 17; TEMP 98.3; O2SAT 96
[2025-08-23] MEDS: POTASSIUM CHL 20MEQ/100ML 100 ML IV SCH (12:15)
[2025-08-23] MEDS: FLUCONAZOLE 100 MG TAB PO ONE (12:27)
[2025-08-23 12:45] VITALS: BP 117/72; PULSE 86; RESP 18; TEMP 36.8; O2SAT 95
[2025-08-23 13:00] VITALS: BP 117/72; PULSE 86; RESP 18; TEMP 98.2; O2SAT 95
[2025-08-23] MEDS ORDERED: ERGO1CAP23 PO (13:39)
[2025-08-23] MEDS ORDERED: ATOR20TA50 PO (13:39)
[2025-08-23] MEDS ORDERED: AML5T PO (13:39)
[2025-08-23] MEDS ORDERED: PANT40T PO (13:39)
[2025-08-23] MEDS ORDERED: APIX5TAB PO (13:39)
[2025-08-23] MEDS ORDERED: FLUC200T50 PO ×2 (13:43→19:34)
--- NOTE | 2025-08-23 13:48 | DVHDSRES ---
Discharge Summary Date of Admission Resident Creating Document: NAM ZHENG RESIDENT Aug 15, 2025 at 21:37 Date of Discharge: Aug 23, 2025 Admitting Diagnosis Intractable low back pain Labs/Diagnostic Data: Laboratory Results Test 08/23/25 07:30 08/22/25 04:36 08/20/25 04:45 08/17/25 09:37 White Blood Count 4.7 10^3/uL (4.4-10.8) Red Blood Count 4.59 10^6/uL (4.5-5.90) Hemoglobin 12.6 g/dL (13.5-17.5) Hematocrit 37.0 % (41.0-53.0) Mean Corpuscular Volume 80.8 fL (80.0-100.0) Mean Corpuscular Hemoglobin 27.5 pg (28.0-32.0) Mean Corpuscular Hemoglobin Concent 34.0 g/dL (32.0-36.0) Red Cell Distribution Width 15.7 % (11.8-14.3) Platelet Count 259 10^3/uL (140-450) Mean Platelet Volume 7.1 fL (6.9-10.8) Neutrophils (%) (Auto) 63.8 % (37.0-80.0) Lymphocytes (%) (Auto) 21.2 % (10.0-50.0) Monocytes (%) (Auto) 11.9 % (0.0-12.0) Eosinophils (%) (Auto) 2.6 % (0.0-7.0) Basophils (%) (Auto) 0.5 % (0.0-2.0) Neutrophils # (Auto) 3.0 10 ^3/uL (1.6-8.6) Lymphocytes # (Auto) 1.0 10 ^3/uL (0.4-5.4) Monocytes # (Auto) 0.6 10 ^3/uL (0-1.3) Eosinophils # (Auto) 0.1 10 ^3/uL (0-0.8) Basophils # (Auto) 0 10 ^3/uL (0-0.2) Nucleated Red Blood Cells 0.1 % Sodium Level 144 mmol/L (136-145) Potassium Level 3.3 mmol/L (3.5-5.1) Chloride Level 111 mmol/L (98-107) Carbon Dioxide Level 21 mmol/L (20-31) Anion Gap 12 (5-15) Blood Urea Nitrogen 18 mg/dL (9-23) Creatinine 1.06 mg/dL (0.700-1.30) Glomerular Filtration Rate Calc 86 mL/min (>90) BUN/Creatinine Ratio 17.0 (10.0-20.0) Serum Glucose 96 mg/dL (74-106) Calcium Level 9.6 mg/dL (8.7-10.4) Vancomycin Level Trough 14.6 ug/mL (5-10) Magnesium Level 2.3 mg/dL (1.6-2.6) Total Bilirubin 0.4 mg/dL (0.2-1.0) Aspartate Amino Transferase (AST) 29 U/L (13-40) Alanine Aminotransferase (ALT) 50 U/L (7-40) Alkaline Phosphatase 108 U/L (46-116) Total Protein 6.7 g/dL (5.7-8.2) Albumin 3.8 g/dL (3.2-4.8) TB Test (QFT) Gold Plus Negative (Negative) TB Test (QFT) Nil 0.03 IU/mL (.) TB Test (QFT) Mitogen >10.00 IU/mL (.) TB Test (QFT) Antigen 1 0.08 IU/mL (.) TB Test (QFT) Antigen 2 0.06 IU/mL (.) TB Test (QFT) Criteria Comment (.) Test 08/16/25 21:57 08/16/25 16:30 08/16/25 13:15 08/16/25 06:30 Erythrocyte Sedimentation Rate 25 mm/hr (0-20) Influenza Type A Antigen Negative (Negative) Influenza Type B Antigen Negative (Negative) SARS-CoV-2 Antigen (Rapid) Negative (NEGATIVE) C-Reactive Protein High Sensitivity 2.53 mg/dL (<1.0) HIV (1&2) Antibody Negative (Negative) Prothrombin Time 10.5 sec (9.3-11.8) Prothrombin Time INR 0.99 (0.9-1.15) Activated Partial Thromboplast Time 29.6 SEC (24.5-34.5) Test 08/16/25 05:30 08/15/25 18:57 08/15/25 18:25 Hemoglobin A1c 5.5 % A1C (<5.7) Vitamin B12 Level 487 pg/mL (211-911) Vitamin D 25-Hydroxy 24.8 ng/mL (30.0-100) Thyroid Stimulating Hormone (TSH) 1.49 uIU/mL (0.55-4.78) Lactic Acid Level 1.2 mmol/L (0.4-2.0) Urine Color Light-yellow (Yellow) Urine Clarity Clear (Clear) Urine pH 6.0 (5.0-9.0) Urine Specific [place] 1.024 (1.001-1.035) Urine Protein Negative (Negative) Urine Ketones Trace (Negative) Urine Blood Negative /uL (Negative) Urine Nitrite Negative (Negative) Urine Bilirubin Negative (Negative) Urine Urobilinogen Normal mg/dL (Negative) Urine Leukocyte Esterase Negative /uL (Negative) Urine RBC <1 /hpf (0 - 3) Urine Microscopic WBC < 1 /HPF (0-3) Urine Squamous Epithelial Cells Few /hpf (<5) Urine Bacteria None seen /hpf (None Seen) Urine Glucose Normal mg/dL (Normal) Other Laboratory Tests 08/23/25 07:30 Brief Hx & Hospital Course: 50-year-old male, with a past medical history of spinal abscess, coccidioidomycosis (valley fever), impaired mobility, chronic low back pain, lumbar stenosis, GERD, type 2 diabetes mellitus, hypertension, and DVT on Eliquis,came in for severe low back pain for 10 months, acutely worsened over the last 3 days to 10/10 intensity, localized to the lumbar region without radiation and aggravated by movement. He was admitted previously to [facility] in February 2025 and diagnosed with valley fever, and has been on fluconazole as outpatient. He has a history of multiple incarcerations () and is currently wheelchair bound due to a prior workplace injury. He denies bowel incontinence, saddle paresthesias, pelvic numbness, and extremity weakness. No sick contacts, weight loss, or fevers are reported. On this admission, CT lumbar spine without contrast shows destructive changes centered at the L3L4 endplates with surrounding paravertebral inflammatory changes, highly suspicious for discitis/osteomyelitis. MRI lumbar spine with and without contrast confirms L3L4 discitis and osteomyelitis with abscess and/or phlegmon extending into the anterior epidural space along the posterior margins of the L2L5 vertebrae (greater on the right), possibly also in the posterior epidural space at L3L4. The process measures approximately 9.7 cm longitudinally and results in moderate spinal canal stenosis at L3L4 and moderate to severe spinal canal stenosis at L4, with significant bilateral neuroforaminal stenosis at L2L3, L3L4, and L4L5 and displacement of the aorta and IVC anteriorly. Findings may correspond to lower extremity radicular symptoms in L2, bilateral L3, bilateral L4, and bilateral L5 nerve root distributions. Neurosurgery has been consulted. Infectious disease specialist was consulted as well and based on their consult, he was started empirically on vancomycin, cefepime, and continued on fluconazole. Blood cultures to date are no growth. HIV, influenza A/B, and COVID-19 tests are negative. CRP has risen from 22 (June) to 40 (July), raising concern for ongoing or worsening infection. Current cocci antibody testing is pending. 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 TB (Pott disease) remains a consideration due to incarceration history, but clinical suspicion is lower. clinical social work therapist tried to transfer the patient to a higher level of care but was unsuccessful. physical therapy was consulted and patient was able to ambulate to the chair. He is stable and can be discharged with high dose of fluconazole 1200 mg q.d. daily until surgery can be done. He needs to follow up stat with he was surgery. Patient is being discharged and He and his have agreed to the discharge plan. General Appearance: Alert, Oriented X3, Cooperative, Not in acute distress HEENT: Atraumatic, Mucous membranes moist/pink Respiratory: Clear to auscultation, Normal air movement, No added sounds Cardiovascular: Regular rate, Normal S1, Normal S2, No murmurs Abdominal: Active bowel sounds, Soft, no distention, no tenderness Extremities: No edema, Normal pulses, No tenderness/swelling, can move all 4 extremities Skin: No Significant rash, except past surgical scars Neuro: Normal speech, sensorimotor deficits none, severe tenderness in lower back palpation Psych/Mental Status: Mental status NL, Mood NL Nurse was there as plumbing warehouse helper during examination Operations or Procedures lumbar spine CT IMPRESSION: Findings highly suspicious for L3-L4 discitis/osteomyelitis. Recommend MRI lumbar spine with and without Contrast to assess for intrathecal extension and possible epidural abscess. lumbar spine MRI IMPRESSION: 1. No fracture of the lumbar spine. 2. L3-L4 discitis and osteomyelitis, with abscess and/or phlegmon extending into the anterior epidural space along the posterior margins of the L2-L5 vertebral bodies, greater on the right, and possibly also in the posterior epidural space at the L3-L4 level. This process measures 9.7 cm longitudinal and causes moderate spinal canal stenosis at L3-L4 and moderate to severe spinal canal stenosis at L4-LAdditionally, phlegmon extends along the anterior margins of the L2-L5 vertebral bodies and displaces the aorta and IVC anteriorly. Recommend spinal surgery consultation if not already obtained. 3. Significant neural foraminal stenosis on the right at L2-L3, bilaterally at L3-L4, and bilaterally at L4-L5; and partial effacement of the lateral recesses at the L3-L4 and L4-L5 levels. These findings may correspond to lower extremity radicular symptoms in the right L2, bilateral L3, bilateral L4, and bilateral L5 nerve root distributions. chest x-ray 1. Cardiomegaly with CHF. DICTATED BY: AURELIO COHEN MD DICTATED DATE/TIME: 08/16/25 0840 chest x-ray repeat IMPRESSION: 1. No acute disease. 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 # History of spinal abscess # Cardiomegaly # Congestive heart failure, diastolic, HFpEF 65%, not under exacerbation # Essential hypertension # History of DVT( home medication Eliquis) # Type 2 diabetes mellitus # Mixed dyslipidemia # Morbid obesity, BMI 41.4 Discharge Disposition: Home Discharge Instruct/Medications Diet: Cardiac 2g Na,low cholest Activity: No Restrictions, As Tolerated Follow Up/Referral: Patient to follow up on Neurosurgery soon as possible Medications: Per EMR Scheduled Acetaminophen W/ Codeine (Tylenol W/Cod #3), 1 TAB PO Q6HPRN Amlodipine Besylate (Norvasc Tablet), 10 MG PO DAILY Apixaban Base (Eliquis), 5 MG PO BID Atorvastatin Calcium (Atorvastatin Calcium), 40 MG PO HS Ergocalciferol (Vitamin D 40597 Unit), 50,000 UNIT PO Q7D Fluconazole (Fluconazole), 1,200 MG PO DAILY Fluconazole (Fluconazole), 1,200 MG PO DAILY Pantoprazole Sodium Sesquihydr (Pantoprazole Sodium), 40 MG PO DAILY@0600 Scheduled PRN Cyclobenzaprine Hcl (Cyclobenzaprine Hcl), 1 TAB PO QPM PRN Discharge Statement: "Patient was advised to return to the ER or call 911 if any headaches, dizziness, shortness of breath, chest pain, abdominal pain, bleeding, fevers, or worsening of medical condition. Patient was counseled about treatment plan, medications, possible side effects, patientverbalized understanding. All questions were answered to the best of my ability. 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
--- NOTE | 2025-08-23 19:35 | DVHPN2 ---
Consult Progress Note Date Seen: Aug 22, 2025 Subjective Patient reports: No new complaints, Feels better (per team patient having difficulty getting accepted to [facility] due to insurance) Objective vital signs Vital Sign Date Time Temp Pulse Resp B/P (MAP) Pulse Ox O2 Delivery O2 Flow Rate FiO2 08/23/25 13:00 98.2 86 18 117/72 (87) 95 98.2 08/23/25 08:00 Room Air* 0 21 Total Intake and Output 08/22/25 08/22/25 08/23/25 15:00 23:00 07:00 Intake Total 1800 ml 750 ml Output Total 950 ml 1200 ml 2200 ml Balance -950 ml 600 ml -1450 ml laboratory and microbiology Laboratory Tests 08/23/25 07:30 Test 08/23/25 07:30 Range/Units Serum Glucose 96 74-106 mg/dL Problem List/Assessment/Plan Problem List/Assessment/Plan Assessment/Plan Problems(with codes): (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 (3) Lumbar discitis (4) Acute exacerbation of chronic low back pain Plan/Recommendation ASSESSMENT AND PLAN: ID Problem List: \-- Lumbar L3L4 discitis/osteomyelitis with large anterior/epidural phlegmon/abscess (L2L5) causing spinal canal and foraminal stenosis \-- 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 male, with a past medical history of spinal abscess, coccidioidomycosis (valley fever), impaired mobility, chronic low back pain, lumbar stenosis, GERD, type 2 diabetes mellitus, hypertension, and DVT on Eliquis, who presents with severe low back pain for 10 months, acutely worsened over the last 3 days to 10/10 intensity, localized to the lumbar region without radiation and aggravated by movement. He was admitted previously to [facility] in February 2025 and diagnosed with valley fever, and has been on fluconazole as outpatient. He has a history of multiple incarcerations () and is currently wheelchair bound due to a prior workplace injury. He denies bowel incontinence, saddle paresthesias, pelvic numbness, and extremity weakness. No sick contacts, weight loss, or fevers are reported. On this admission, CT lumbar spine without contrast shows destructive changes centered at the L3L4 endplates with surrounding paravertebral inflammatory changes, highly suspicious for discitis/osteomyelitis. MRI lumbar spine with and without contrast confirms L3L4 discitis and osteomyelitis with abscess and/or phlegmon extending into the anterior epidural space along the posterior margins of the L2L5 vertebrae (greater on the right), possibly also in the posterior epidural space at L3L4. The process measures approximately 9.7 cm longitudinally and results in moderate spinal canal stenosis at L3L4 and moderate to severe spinal canal stenosis at L4, with significant bilateral neuroforaminal stenosis at L2L3, L3L4, and L4L5 and displacement of the aorta and IVC anteriorly. Findings may correspond to lower extremity radicular symptoms in L2, bilateral L3, bilateral L4, and bilateral L5 nerve root distributions. Neurosurgery has been consulted. He has been started empirically on vancomycin, cefepime, and continued on fluconazole. Blood cultures to date are no growth. Prior serologies show cocci complement fixation titer 1:32 in April, decreasing to 1:16 as of 07/11/2025 on therapy. HIV, influenza A/B, and COVID-19 tests are negative. CRP has risen from 22 (June) to 40 (July), raising concern for ongoing or worsening infection. Current cocci antibody testing is pending. 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 TB (Pott disease) remains a consideration due to incarceration history, but clinical suspicion is lower. Given the extent of epidural disease, risk for neurologic compromise (leg weakness, chronic immobility, potential for IRONWORKER FOREMAN involvement), and possible failure of current azole therapy, escalation to amphotericin B is recommended, with consideration of intrathecal amphotericin B at a center with appropriate expertise. Bacterial epidural abscess/osteomyelitis is considered less likely at this time in the setting of known cocci spinal infection and negative cultures to date, but empiric broad-spectrum antibiotics are reasonable pending further data. 12/11: takes fluconazole 400mg at home 08/21: awaiting transfer to [facility], quantiferon gold is negative Plan: \-- Coccidioidomycosis with lumbar discitis/osteomyelitis and epidural phlegmon/abscess (L2L5): \-- High suspicion for disseminated coccidioidomycosis involving the vertebrae and epidural space based on imaging, prior positive cocci titers, and clinical course. \-- Obtain/confirm current coccidioides serologies, including complement fixation titers; follow results and trends closely. \-- CRP improved from 40 -->2 \-- Antifungal therapy: \-- Start amphotericin B systemically in addition to IV fluconazole, given concern for disseminated spinal coccidioidomycosis with large epidural component, progressive pain, and risk of neurologic deterioration. \-- Intrathecal therapy / higher level of care: \-- Consider lumbar puncture for diagnostic evaluation and to facilitate intrathecal amphotericin B administration, if this is within the facilitys capabilities. \-- If intrathecal amphotericin B cannot be provided at this facility, strongly consider transfer to a higher level of care with valley fever expertise (e.g., dedicated valley fever center in [place]) for evaluation and management, including potential intrathecal therapy and coordinated neurosurgical care. -- lumbar puncture studies should include protein, cell count, glucose, bacterial culture, fungal culture, afb culture, mtb pcr, cocci ab cf, administration of intrathecal amphotericin deoxycholate. --> unable to administer amphoterocin intrathecally here therefore would recommend [facility] at this time. \-- Neurosurgical management: \-- Continue close collaboration with Neurosurgery for assessment of spinal stability and timing/need for surgical evacuation of the epidural collection, especially if neurologic status worsens. \-- Epidural abscess/phlegmon at L2L5 with canal stenosis qualifies as significant neurologic disease and may warrant surgical evacuation depending on clinical course. \-- Neurologic monitoring: \-- Monitor frequently for new or worsening leg weakness, sensory changes, bowel/bladder dysfunction, saddle anesthesia, or other signs of cord/nerve root compromise. \-- If patient develops headache, nausea, vomiting, blurry vision, or other focal neurologic symptoms, obtain MRI brain with and without contrast to evaluate for IRONWORKER FOREMAN coccidioidomycosis/brain abscess. \-- Rule out spinal tuberculosis (Pott disease): \-- Risk factor: prolonged history of incarceration (). \-- Patient denies sick contacts, weight loss, and fevers; overall clinical suspicion for TB is low at this time. quantiferon gold is negative \-- Broad-spectrum antibacterial coverage / bacterial vertebral osteomyelitis- epidural abscess: \-- Currently on empiric vancomycin and cefepime plus antifungal therapy. \-- Blood cultures to date are no growth. \-- If blood cultures remain negative at 4872 hours, and no new evidence emerges to support bacterial vertebral osteomyelitis/epidural abscess, it would be reasonable to discontinue vancomycin and cefepime, given low current suspicion for bacterial etiology in the setting of a known coccidioidal spinal infection. \-- Monitoring and supportive care while on amphotericin B: \-- Monitor renal function (BUN, creatinine) closely. \-- Monitor electrolytes (especially potassium and magnesium) closely; replace per protocol. \-- Continue pain management as initiated, adjusting as needed for adequate control while avoiding oversedation that could mask evolving neurologic deficits. \-- Chronic comorbidities (DM2, HTN, DVT on Eliquis, GERD, impaired mobility): \-- Continue home medications as appropriate and as compatible with current therapies: \-- Amlodipine continue for hypertension management unless contraindicated. \-- Apixaban (Eliquis) continue for history of DVT if neurosurgical team agrees and there is no immediate plan for invasive spinal procedures; reassess anticoagulation strategy if intervention is scheduled. \-- Atorvastatin continue if no contraindications. \-- Fluconazole see antifungal plan above regarding transition to amphotericin B. \-- Maintain good glycemic control for optimal infection outcomes (specific regimen not provided in transcript). \-- Address mobility and pressure injury prevention given wheelchair dependence and limited mobility (specific plan not detailed in transcript). Isolation Precautions: standard; no airborne or additional isolation indicated at this time based on current low suspicion for TB. Assessment and plan was discussed with the patient as written above Plan is subject to change pending incorporation of new incoming information/diagnostics. Updates may be added as addendum at the bottom (OR TOP) of this note Thank you for interesting consult. ID will continue to follow. Please contact Infectious Disease for any questions or concerns. Damian Groves M.D. [facility] Ph: ? Teams text: [email or web address] Electronically signed by: Damian Groves MD, 08/19/2025 \ Physical Exam: General: NAD Neck: Supple. No masses. HEENT: PERRL. Normal lids and conjunctiva. Moist mucous membranes. Oropharynx without lesions, exudates or excessive erythema. Normal appearance of the external aspects of the nose and ears. Heart: Regular rhythm, normal rate. No murmur. No lower extremity edema. Lungs: Normal respiratory effort. Clear to auscultation bilaterally. No wheezes. No crackles. Abdomen: Soft. Non-tender. Non-distended. No masses or abdominal hernia. Msk: No digital cyanosis. Normal strength and tone in all 4 limbs. Lumbar spine: tenderness to palpation over the lumbar vertebrae (L3L4 region). Skin: Warm and dry, no rashes. Neuro: Alert. No facial droop or slurred speech. Extra-ocular movements intact. Sensation intact to soft touch in all 4 limbs. Strength 5/5 in bilateral lower extremities. Psych: Appropriate mood. Full affect. Oriented to person, place, time, and situation. Plan discussed with: Patient DAMIAN GROVES MD Aug 23, 2025 19:35
--- NOTE | 2025-08-23 19:42 | DVHPN2 ---
Consult Progress Note Date Seen: Aug 23, 2025 Subjective Patient reports: Feels better (no new neurological deficits) Objective vital signs Vital Sign Date Time Temp Pulse Resp B/P (MAP) Pulse Ox O2 Delivery O2 Flow Rate FiO2 08/23/25 13:00 98.2 86 18 117/72 (87) 95 98.2 08/23/25 08:00 Room Air* 0 21 Total Intake and Output 08/22/25 08/22/25 08/23/25 15:00 23:00 07:00 Intake Total 1800 ml 750 ml Output Total 950 ml 1200 ml 2200 ml Balance -950 ml 600 ml -1450 ml laboratory and microbiology Laboratory Tests 08/23/25 07:30 Test 08/23/25 07:30 Range/Units Serum Glucose 96 74-106 mg/dL Problem List/Assessment/Plan Problem List/Assessment/Plan Assessment/Plan Problems(with codes): (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 (3) Lumbar discitis (4) Acute exacerbation of chronic low back pain Plan/Recommendation ASSESSMENT AND PLAN: ID Problem List: \-- Lumbar L3L4 discitis/osteomyelitis with large anterior/epidural phlegmon/abscess (L2L5) causing spinal canal and foraminal stenosis \-- 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 male, with a past medical history of spinal abscess, coccidioidomycosis (valley fever), impaired mobility, chronic low back pain, lumbar stenosis, GERD, type 2 diabetes mellitus, hypertension, and DVT on Eliquis, who presents with severe low back pain for 10 months, acutely worsened over the last 3 days to 10/10 intensity, localized to the lumbar region without radiation and aggravated by movement. He was admitted previously to [facility] in February 2025 and diagnosed with valley fever, and has been on fluconazole as outpatient. He has a history of multiple incarcerations () and is currently wheelchair bound due to a prior workplace injury. He denies bowel incontinence, saddle paresthesias, pelvic numbness, and extremity weakness. No sick contacts, weight loss, or fevers are reported. On this admission, CT lumbar spine without contrast shows destructive changes centered at the L3L4 endplates with surrounding paravertebral inflammatory changes, highly suspicious for discitis/osteomyelitis. MRI lumbar spine with and without contrast confirms L3L4 discitis and osteomyelitis with abscess and/or phlegmon extending into the anterior epidural space along the posterior margins of the L2L5 vertebrae (greater on the right), possibly also in the posterior epidural space at L3L4. The process measures approximately 9.7 cm longitudinally and results in moderate spinal canal stenosis at L3L4 and moderate to severe spinal canal stenosis at L4, with significant bilateral neuroforaminal stenosis at L2L3, L3L4, and L4L5 and displacement of the aorta and IVC anteriorly. Findings may correspond to lower extremity radicular symptoms in L2, bilateral L3, bilateral L4, and bilateral L5 nerve root distributions. Neurosurgery has been consulted. He has been started empirically on vancomycin, cefepime, and continued on fluconazole. Blood cultures to date are no growth. Prior serologies show cocci complement fixation titer 1:32 in April, decreasing to 1:16 as of 07/11/2025 on therapy. HIV, influenza A/B, and COVID-19 tests are negative. CRP has risen from 22 (June) to 40 (July), raising concern for ongoing or worsening infection. Current cocci antibody testing is pending. 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 TB (Pott disease) remains a consideration due to incarceration history, but clinical suspicion is lower. Given the extent of epidural disease, risk for neurologic compromise (leg weakness, chronic immobility, potential for SERVICE CASHIER involvement), and possible failure of current azole therapy, escalation to amphotericin B is recommended, with consideration of intrathecal amphotericin B at a center with appropriate expertise. Bacterial epidural abscess/osteomyelitis is considered less likely at this time in the setting of known cocci spinal infection and negative cultures to date, but empiric broad-spectrum antibiotics are reasonable pending further data. 08/17: takes fluconazole 400mg at home 08/21: awaiting transfer to [facility], quantiferon gold is negative Plan: -- given progression of infection on fluconazole 400mg qd at home, recommend increasing dose. per weight, 800mg would be standard, and given neurological disease progression, 1200mg qd would like me most appropriate dose with plan to deescalate dose based to cocci titer monitoring and serial spine imaging evaluation. ==> irregardless of transfer status, patient will need urgent intrathecal antifungal therapy and evaluation for debridement by neurosurgery at a [facility] facility. informed patient that he can wait here for transfer but if facilities continue to reject him on basis of insurance, he may get more immediate care by discharge and going to [facility] facility by his own means of transportation. explained to patients risks in doing so could involve developing progression of neurological deficits en route. to assess these risks and capacity for safe discharge, can stop amphoterocin IV at this time, and increase dose 1200mg fluconazole daily at this time. if patient tolerates dose (LFTs need monitoring and EKG will need repeated in one week) can consider fluconazole 1200mg qd x 30 days as a discharge regimen, will fu with patient in ID clinic in 7 days. \-- Coccidioidomycosis with lumbar discitis/osteomyelitis and epidural phlegmon/abscess (L2L5): \-- High suspicion for disseminated coccidioidomycosis involving the vertebrae and epidural space based on imaging, prior positive cocci titers, and clinical course. \-- Obtain/confirm current coccidioides serologies, including complement fixation titers; follow results and trends closely. \-- CRP improved from 40 -->2 \-- Antifungal therapy: \-- Start amphotericin B systemically in addition to IV fluconazole, given concern for disseminated spinal coccidioidomycosis with large epidural component, progressive pain, and risk of neurologic deterioration. \-- Intrathecal therapy / higher level of care: \-- Consider lumbar puncture for diagnostic evaluation and to facilitate intrathecal amphotericin B administration, if this is within the facilitys capabilities. \-- If intrathecal amphotericin B cannot be provided at this facility, strongly consider transfer to a higher level of care with valley fever expertise (e.g., dedicated valley fever center in [place]) for evaluation and management, including potential intrathecal therapy and coordinated neurosurgical care. -- lumbar puncture studies should include protein, cell count, glucose, bacterial culture, fungal culture, afb culture, mtb pcr, cocci ab cf, administration of intrathecal amphotericin deoxycholate. --> unable to administer amphoterocin intrathecally here therefore would recommend [facility] at this time. \-- Neurosurgical management: \-- Continue close collaboration with Neurosurgery for assessment of spinal stability and timing/need for surgical evacuation of the epidural collection, especially if neurologic status worsens. \-- Epidural abscess/phlegmon at L2L5 with canal stenosis qualifies as significant neurologic disease and may warrant surgical evacuation depending on clinical course. \-- Neurologic monitoring: \-- Monitor frequently for new or worsening leg weakness, sensory changes, bowel/bladder dysfunction, saddle anesthesia, or other signs of cord/nerve root compromise. \-- If patient develops headache, nausea, vomiting, blurry vision, or other focal neurologic symptoms, obtain MRI brain with and without contrast to evaluate for SERVICE CASHIER coccidioidomycosis/brain abscess. \-- Rule out spinal tuberculosis (Pott disease): \-- Risk factor: prolonged history of incarceration (). \-- Patient denies sick contacts, weight loss, and fevers; overall clinical suspicion for TB is low at this time. quantiferon gold is negative \-- Broad-spectrum antibacterial coverage / bacterial vertebral osteomyelitis- epidural abscess: \-- Currently on empiric vancomycin and cefepime plus antifungal therapy. \-- Blood cultures to date are no growth. \-- If blood cultures remain negative at 4872 hours, and no new evidence emerges to support bacterial vertebral osteomyelitis/epidural abscess, it would be reasonable to discontinue vancomycin and cefepime, given low current suspicion for bacterial etiology in the setting of a known coccidioidal spinal infection. \-- Monitoring and supportive care while on amphotericin B: \-- Monitor renal function (BUN, creatinine) closely. \-- Monitor electrolytes (especially potassium and magnesium) closely; replace per protocol. \-- Continue pain management as initiated, adjusting as needed for adequate control while avoiding oversedation that could mask evolving neurologic deficits. \-- Chronic comorbidities (DM2, HTN, DVT on Eliquis, GERD, impaired mobility): \-- Continue home medications as appropriate and as compatible with current therapies: \-- Amlodipine continue for hypertension management unless contraindicated. \-- Apixaban (Eliquis) continue for history of DVT if neurosurgical team agrees and there is no immediate plan for invasive spinal procedures; reassess anticoagulation strategy if intervention is scheduled. \-- Atorvastatin continue if no contraindications. \-- Fluconazole see antifungal plan above regarding transition to amphotericin B. \-- Maintain good glycemic control for optimal infection outcomes (specific regimen not provided in transcript). \-- Address mobility and pressure injury prevention given wheelchair dependence and limited mobility (specific plan not detailed in transcript). Isolation Precautions: standard; no airborne or additional isolation indicated at this time based on current low suspicion for TB. Assessment and plan was discussed with the patient as written above Plan is subject to change pending incorporation of new incoming information/diagnostics. Updates may be added as addendum at the bottom (OR TOP) of this note Thank you for interesting consult. ID will continue to follow. Please contact Infectious Disease for any questions or concerns. Damian Groves M.D. [facility] Ph: ? Teams text: [email or web address] Electronically signed by: Damian Groves MD, 08/19/2025 \ Physical Exam: General: NAD Neck: Supple. No masses. HEENT: PERRL. Normal lids and conjunctiva. Moist mucous membranes. Oropharynx without lesions, exudates or excessive erythema. Normal appearance of the external aspects of the nose and ears. Heart: Regular rhythm, normal rate. No murmur. No lower extremity edema. Lungs: Normal respiratory effort. Clear to auscultation bilaterally. No wheezes. No crackles. Abdomen: Soft. Non-tender. Non-distended. No masses or abdominal hernia. Msk: No digital cyanosis. Normal strength and tone in all 4 limbs. Lumbar spine: tenderness to palpation over the lumbar vertebrae (L3L4 region). Skin: Warm and dry, no rashes. Neuro: Alert. No facial droop or slurred speech. Extra-ocular movements intact. Sensation intact to soft touch in all 4 limbs. Strength 5/5 in bilateral lower extremities. Psych: Appropriate mood. Full affect. Oriented to person, place, time, and situation. Plan discussed with: Patient DAMIAN GROVES MD Aug 23, 2025 19:42
[2025-08-23] MEDS ORDERED: VANCOMYCIN 1GM/250ML IV SCH (20:00)
[2025-08-27] MEDS ORDERED: FLUCONAZOLE 100 MG TAB PO ONE (21:45)
== END 2025-08-23 15:28 | disposition home or self-care (01) | DRG 347 ==
LOC: ER 16:11 → OVERFLOW 21:37 → EAST 08-17 04:40
PROVIDERS: ADMIT Internal Medicine Geriatric Medicine; ATTEND Internal Medicine Geriatric Medicine
DX: M48.061 Spinal stenosis, lumbar region without neurogenic claudication (principal); B38.7 Disseminated coccidioidomycosis; A18.01 Tuberculosis of spine; M46.26 Osteomyelitis of vertebra, lumbar region; I11.0 Hypertensive heart disease with heart failure; E11.69 Type 2 diabetes mellitus with other specified complication; E66.01 Morbid (severe) obesity due to excess calories; E78.2 Mixed hyperlipidemia; Z20.822 Contact with and (suspected) exposure to COVID-19; M54.16 Radiculopathy, lumbar region; K21.9 Gastro-esophageal reflux disease without esophagitis; Z74.09 Other reduced mobility; I50.40 Unspecified combined systolic (congestive) and diastolic (congestive) heart failure; G89.29 Other chronic pain; Z86.718 Personal history of other venous thrombosis and embolism; Z83.3 Family history of diabetes mellitus; Z68.41 Body mass index [BMI] 40.0-44.9, adult; Z80.1 Family history of malignant neoplasm of trachea, bronchus and lung; Z86.61 Personal history of infections of the central nervous system; Z99.3 Dependence on wheelchair; Z78.9 Other specified health status
CPT/HCPCS: 36415; 71045; 72131; 72158; 80048; 80053; 80202; 81001; 82306; 82565; 82607; 83036; 83605; 83735; 84443; 85025; 85610; 85652; 85730; 86141; 86635; 86703; 86850; 86900; 86901; 87040; 87081; 87086; 87426; 87804; 93306; 97110; 97116; 97163; 97530; G0378; J0692; J1450; J3480; J7060; Q0162